=== PATIENT | female | born 1945 | race Caucasian/White ===

== ENCOUNTER 2016-11-03 14:46 | Outpatient (RCR) | payer MEDICARE ==
--- OUTSIDE RECORDS SUMMARY | 2016-10-30 10:45 | XMS REPORT | Continuity of Care Document ---
Author Author [facility] Organization [facility] Address Unknown Phone Unavailable Care Team Providers Care Relays Draftsperson Name Role Phone Cam Dean III PCP [phone] Source Comments Some departments are not documenting in the electronic medical record. If you do not see the information that you expected, contact Release of Information in the Health Information Management department at [phone] for further assistance in locating additional records.[facility] Active Allergies and Adverse Reactions Allergen Noted Date Severity Reactions Comments Latex 05/23/2014 ITCHING, EDEMA 'latex tape' Lortab 08/31/2012 AGITATION Morphine 05/27/2012 HIVES, RASH Penicillins 05/27/2012 HIVES, REDNESS Current Medications Prescription Sig. Disp. Refills Start End Date Status Date raloxifene (EVISTA) 60 mg Take 60 mg by mouth daily Active tablet before breakfast. potassium chloride SR Take 10 mEq by mouth Active (K-DUR) 10 mEq tablet three times daily. citalopram (CELEXA) 20 mg Take 20 mg by mouth Active tablet daily. levothyroxine (SYNTHROID) Take 200 mcg by mouth Active 200 mcg tablet daily. carvedilol (COREG) 25 mg Take 25 mg by mouth twice Active tablet daily with meals. fenofibrate micronized Take 134 mg by mouth Active (LOFIBRA) 134 mg capsule daily before breakfast. triamterene-hydrochloroth Take 2 Caps by mouth Active iazide (DYAZIDE) 37.5-25 every morning. mg per capsule aspirin EC 81 mg tablet Take 81 mg by mouth Active daily. CALCIUM CARBONATE/VITAMIN Take by mouth daily. Active D3 (CALCIUM + D PO) Vitamin A Palmitate Take 1 Cap by mouth every Active 15,000 unit Cap 3 days. LUTEIN PO Take 1 Tab by mouth as Active Needed. FERROUS SULFATE PO Take 45 mg by mouth every Active 3 days. vitamins, multiple tablet Take 1 Tab by mouth Active daily. traMADol (ULTRAM) 50 mg Take 1 Tab by mouth every 20 Tab 0 08/31/20 Active tablet 6 hours as needed for 12 Pain. NAPROXEN SODIUM (ALEVE Take by mouth as Needed. Active PO) CETIRIZINE HCL (ZYRTEC Take by mouth as Needed. Active PO) RANITIDINE HCL (ZANTAC 75 Take by mouth as Needed. Active PO) NAPROXEN SODIUM (ALEVE Take by mouth as Needed. Active PO) diphenhydrAMINE Take 25 mg by mouth every Active (BENADRYL) 25 mg capsule 6 hours as needed. meclizine (ANTIVERT) 25 Take 25 mg by mouth three Active mg tablet times daily as needed. fluticasone (FLONASE) 50 Apply 2 Sprays to each 3 Inhaler 3 09/28/20 Active mcg/actuation nasal spray nostril as directed 14 daily. 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 Discuss ARGUS 2 as an option. Lyme disease 09/20/2013 Last Assessment & Plan: Currently managed by Dr. Zach Dean and PROCESS TANK TENDER Continue medications. Vision loss, bilateral 09/20/2013 Overview: Recent vision loss of both eyes (was able to read emails 2 weeks ago) Last Assessment & Plan: Recent bx of TA shows no abnormalities. Negative for evidence of inflammation, calcification or temporal arteritis. Will do taper of prednisone. Currently on 60 (6 X 10 mg per day). Will do 30 for 5 days, 20 for 5 days, 10 for 5 day, 5 for 5 days then stop. Patient has hx of arthritis. Slow taper to prevent exacerbation. Discussed vision decrease is likely disease progression. Retinitis pigmentosa 09/20/2013 Most Recent Encounters Date Type Specialty Providers Description 10/23/2016 Clinical Otolaryngology Jyotsna Robles AUD Sensorineural hearing Support loss (SNHL) of both ears (Primary Dx) Social History Tobacco Use Types Packs/Day Years Used Date Never Smoker Smokeless Tobacco: Never Used Alcohol Use Drinks/Week oz/Week Comments Yes 5 Standard 2.5 occasionally drinks or equivalent Last Filed Vital Signs Vital Sign Reading Time Taken Blood Pressure 130/79 09/28/2014 11:22 AM TRACK SUBWAY REPAIR SUPERVISOR Pulse 71 09/28/2014 11:22 AM TRACK SUBWAY REPAIR SUPERVISOR Temperature 36.6 C (97.9 F) 09/18/2014 1:45 PM TRACK SUBWAY REPAIR SUPERVISOR Respiratory Rate - - Height 1.676 m (5' 6") 09/28/2014 11:22 AM TRACK SUBWAY REPAIR SUPERVISOR Weight 68.947 kg (152 lb) 09/28/2014 11:22 AM TRACK SUBWAY REPAIR SUPERVISOR Body Mass Index 24.55 09/28/2014 11:22 AM TRACK SUBWAY REPAIR SUPERVISOR Oxygen Saturation 92% 09/18/2014 1:45 PM TRACK SUBWAY REPAIR SUPERVISOR Plan of Care Health Maintenance Due Date Last Done Comments Hepatitis C Screening 1945 Physical (Comprehensive) 1954 Exam Pertussis Vaccine 1958 Tetanus Vaccine 1964 Breast Cancer Screening 1987 Colorectal Cancer 1997 Screening Shingles Vaccine 2007 Osteoporosis Screening 2012 Prevnar/Pneumovax (#1) 2012 Influenza Vaccine 07/17/2016 Procedures from Last 3 Months Procedure Name Priority Date/Time Associated Diagnosis Comments AUDIOMETRY WITH Routine 10/23/2016 TYMPANOMETRY 12:00 AM TRACK SUBWAY REPAIR SUPERVISOR Results from Last 3 Months AUDIOMETRY WITH TYMPANOMETRY (10/23/2016)
[2016-10-30 10:56] LABS: BASOPHILS # (AUTO) 0.1 10^3/uL (0.0-0.1); BASOPHILS % (AUTO) 1 % (0-10); EOSINOPHILS # (AUTO) 0.5 10^3/uL (0.0-0.3); EOSINOPHILS % (AUTO) 7 % (0-10); LYMPHOCYTES # (AUTO) 1.8 X 10^3 (1.0-4.0); LYMPHOCYTES % (AUTO) 29 % (12-44); MEAN CORPUSCULAR HEMOGLOBIN 30 PG (25-34); MEAN CORPUSCULAR HGB CONC 34 G/DL (32-36); MEAN CORPUSCULAR VOLUME 90 FL (80-99); MONOCYTES # (AUTO) 0.7 X 10^3 (0.0-1.0); MONOCYTES % (AUTO) 11 % (0-12); NEUTROPHILS # (AUTO) 3.3 X 10^3 (1.8-7.8); NEUTROPHILS % (AUTO) 52 % (42-75); PLATELET COUNT 391 10^3/uL (130-400); RED CELL DISTRIBUTION WIDTH 14.4 % (10.0-14.5); WHITE BLOOD COUNT 6.2 10^3/uL (4.3-11.0)
[2016-10-30 11:36] LABS: ANION GAP 5 MMOL/L (5-14); BLOOD UREA NITROGEN 17 MG/DL (7-18); CARBON DIOXIDE 31 MMOL/L (21-32); CHLORIDE 99 MMOL/L (98-107); POTASSIUM 3.8 MMOL/L (3.6-5.0); SODIUM 135 MMOL/L (135-145)
[2016-10-30 11:37] LABS: ALANINE AMINOTRANSFERASE 26 U/L (0-55); ALBUMIN 3.9 G/DL (3.2-4.5); ASPARTATE AMINO TRANSFERASE 27 U/L (5-34); BILIRUBIN,TOTAL 0.4 MG/DL (0.1-1.0); BUN/CREATININE RATIO 25; CREATININE SERUM 0.69 MG/DL (0.60-1.30); GFR ESTIMATED > 60; GLUCOSE 94 MG/DL (70-105); TOTAL PROTEIN 5.8 G/DL (6.4-8.2)
[~2016-11-03 14:46] MED LIST: ASP81TEC PO; CARV25TA PO; CEFD300C3 PO; CTLP20T PO; FENO134C PO; KCL10CCR PO; LVT.1T PO; MECL25TA56 PO; METH16TA2 PO; RLX60T PO; TRIA1CAP4 PO; TRIAM
[2016-11-03 15:05] LABS: BILIRUBIN,URINE NEGATIVE (NEGATIVE); KETONES,URINE NEGATIVE (NEGATIVE); LEUKOCYTE ESTERASE ,URINE NEGATIVE (NEGATIVE); NITRITE,URINE NEGATIVE (NEGATIVE); PH,URINE 7 (5-9); PROTEIN,URINE NEGATIVE (NEGATIVE); UROBILINOGEN,URINE NORMAL (NORMAL)
[2016-11-03 15:31] LABS: SQUAMOUS EPITHELIAL CELL,UR 0-2 /HPF
== END 2017-01-28 | disposition home or self-care (01) ==
LOC: ONC 14:46
PROVIDERS: ATTEND Internal Medicine Hematology & Oncology
DX: Z08 Encounter for follow-up examination after completed treatment for malignant neoplasm (principal); Z85.3 Personal history of malignant neoplasm of breast; Z85.820 Personal history of malignant melanoma of skin; Z92.21 Personal history of antineoplastic chemotherapy; Z92.3 Personal history of irradiation
CPT/HCPCS: 36415; 80053; 81000; 85025

== ENCOUNTER → 2016-12-26 | Outpatient (CLI) | payer MEDICARE ==
[~2016-12-26] MED LIST changes: +RT-ALBUTEROL SULF 2.5 MG/3 ML PRE-MIX VIAL INH ONE
--- OUTSIDE RECORDS SUMMARY | 2016-12-26 12:32 | XMS REPORT | Continuity of Care Document ---
Author Author [facility] Organization [facility] Address Unknown Phone Unavailable Care Team Providers Care Stator Tester Name Role Phone Cam Dean III PCP [phone] Source Comments Some departments are not documenting in the electronic medical record. If you do not see the information that you expected, contact Release of Information in the Health Information Management department at [phone] for further assistance in locating additional records.[facility] Active Allergies and Adverse Reactions Allergen Noted [...] Currently managed by Dr. Zach Dean and LOGISTICS SYSTEM ENGINEER Continue medications. Vision loss, bilateral 09/20/2013 Overview: [...] Taken Blood Pressure 130/79 09/28/2014 11:22 AM PUMP ROOM OPERATOR Pulse 71 09/28/2014 11:22 AM PUMP ROOM OPERATOR Temperature 36.6 C (97.9 F) 09/18/2014 1:45 PM PUMP ROOM OPERATOR Respiratory Rate - - Height 1.676 m (5' 6") 09/28/2014 11:22 AM PUMP ROOM OPERATOR Weight 68.947 kg (152 lb) 09/28/2014 11:22 AM PUMP ROOM OPERATOR Body Mass Index 24.55 09/28/2014 11:22 AM PUMP ROOM OPERATOR Oxygen Saturation 92% 09/18/2014 1:45 PM PUMP ROOM OPERATOR Plan of Care Health Maintenance Due Date Last Done Comments Hepatitis C Screening 1945 Physical (Comprehensive) 1954 Exam Pertussis Vaccine 1958 Tetanus Vaccine 1964 Breast Cancer Screening 1987 Colorectal Cancer 1997 Screening Shingles Vaccine 2007 Osteoporosis Screening 2012 Prevnar/Pneumovax (#1) 2012 Influenza Vaccine 07/17/2016 Procedures from Last 3 Months Procedure Name Priority Date/Time Associated Diagnosis Comments AUDIOMETRY WITH Routine 10/23/2016 TYMPANOMETRY 12:00 AM PUMP ROOM OPERATOR Results from Last 3 Months AUDIOMETRY WITH TYMPANOMETRY (10/23/2016)
== END ==
LOC: RT 12:29
PROVIDERS: ATTEND Internal Medicine
DX: R09.02 Hypoxemia (principal)
CPT/HCPCS: 94060; 94640; 94726; 94729

== ENCOUNTER 2017-10-19 09:17 | Outpatient (RCR) | payer MEDICARE ==
[~2017-10-19 09:17] MED LIST changes: -RT-ALBUTEROL SULF 2.5 MG/3 ML PRE-MIX VIAL INH ONE
[2017-10-19 09:38] LABS: BASOPHILS # (AUTO) 0.1 10^3/uL (0.0-0.1); BASOPHILS % (AUTO) 1 % (0-10); EOSINOPHILS # (AUTO) 0.5 10^3/uL (0.0-0.3); EOSINOPHILS % (AUTO) 9 % (0-10); HEMATOCRIT 38 % (35-52); HEMOGLOBIN 12.9 G/DL (11.5-16.0); LYMPHOCYTES # (AUTO) 1.5 X 10^3 (1.0-4.0); LYMPHOCYTES % (AUTO) 26 % (12-44); MEAN CORPUSCULAR HEMOGLOBIN 30 PG (25-34); MEAN CORPUSCULAR HGB CONC 34 G/DL (32-36); MEAN CORPUSCULAR VOLUME 89 FL (80-99); MEAN PLATELET VOLUME 10.4 FL (7.4-10.4); MONOCYTES # (AUTO) 0.6 X 10^3 (0.0-1.0); MONOCYTES % (AUTO) 9 % (0-12); NEUTROPHILS # (AUTO) 3.3 X 10^3 (1.8-7.8); NEUTROPHILS % (AUTO) 55 % (42-75); PLATELET COUNT 377 10^3/uL (130-400); RED BLOOD COUNT 4.32 10^6/uL (4.35-5.85); RED CELL DISTRIBUTION WIDTH 13.5 % (10.0-14.5)
[2017-10-19 09:59] LABS: ALANINE AMINOTRANSFERASE 20 U/L (0-55); ALBUMIN 3.7 GM/DL (3.2-4.5); ALKALINE PHOSPHATASE 27 U/L (40-136); BILIRUBIN,TOTAL 0.5 MG/DL (0.1-1.0); BUN/CREATININE RATIO 18; CALCIUM 8.8 MG/DL (8.5-10.1); CARBON DIOXIDE 31 MMOL/L (21-32); CHLORIDE 99 MMOL/L (98-107); CREATININE SERUM 0.71 MG/DL (0.60-1.30); GFR ESTIMATED > 60; GLUCOSE 109 MG/DL (70-105); POTASSIUM 4.2 MMOL/L (3.6-5.0); SODIUM 138 MMOL/L (135-145); TOTAL PROTEIN 6.2 GM/DL (6.4-8.2)
== END 2018-01-17 | disposition home or self-care (01) ==
LOC: ONC 09:17
PROVIDERS: ATTEND Internal Medicine Hematology & Oncology
DX: Z08 Encounter for follow-up examination after completed treatment for malignant neoplasm (principal); Z85.3 Personal history of malignant neoplasm of breast; Z85.820 Personal history of malignant melanoma of skin; Z92.21 Personal history of antineoplastic chemotherapy; Z92.3 Personal history of irradiation
CPT/HCPCS: 80053; 85025; 99213

== ENCOUNTER → 2017-10-27 | Outpatient (CLI) | payer MEDICARE ==
--- NOTE | 2017-10-28 10:25 | Diagnostic Imaging Report ---
EXAMINATION: Bilateral screening mammogram 2D views with tomosynthesis. The current study was also evaluated with a Computer Aided Detection (CAD) system. INDICATION: Screening. PERSONAL HISTORY: No current complaints stated on the questionnaire. COMPARISON: 07/14/2016. FINDINGS: The breasts are composed of heterogeneously dense parenchyma which may decrease mammographic sensitivity. Benign-appearing calcifications are seen. Allowing for technique and positional differences, no suspicious change is seen. IMPRESSION: No significant change. ACR BI-RADS Category 2: Benign findings. Result letter will be mailed to the patient. Note: At least 10% of breast cancer is not imaged by mammography. Dictated by: Dictated on workstation # [id number]
== END ==
LOC: RAD 13:58
PROVIDERS: ATTEND Internal Medicine Hematology & Oncology
DX: Z12.31 Encounter for screening mammogram for malignant neoplasm of breast (principal); Z85.3 Personal history of malignant neoplasm of breast
CPT/HCPCS: 77067

== ENCOUNTER → 2018-03-19 | Outpatient (RCR) | payer MEDICARE | END | disposition home or self-care (01) | LOC: CR3 02-17 14:49 | PROVIDERS: ATTEND Internal Medicine | DX: Z29.8 Encounter for other specified prophylactic measures (principal) ==

== ENCOUNTER → 2018-03-31 | Outpatient (CLI) | payer MEDICARE | LOC: CARD 10:52 | PROVIDERS: ATTEND Internal Medicine | DX: R00.2 Palpitations (principal); R53.83 Other fatigue | CPT/HCPCS: 93225; 93226 ==

== ENCOUNTER → 2018-04-05 | Outpatient (CLI) | payer MEDICARE ==
[~2018-04-05] MED LIST changes: +CATHETER FLUSH 10 ML SYR IV PRN; +REGADENOSON 0.4 MG/5 ML SYR (LEXISCAN) IV ONE
[2018-04-05 08:08] VITALS: BP 173/89
--- NOTE | 2018-04-08 17:03 | Cardiology Stress Test Report ---
Stress Test Report Type of NM Stress Test: Test Type: MYOVIEW Date of Procedure/Referring: Date of Procedure: April 08, 2018 PCP Isaiah Dean DO Admitting Physician Isaiah Dean DO Indications: Palpitations, fatigue Baseline Heart Rate: 59 Baseline Blood Pressure: Blood Pressure Systolic: 173 Blood Pressure Diastolic: 89 Summary: Please review Dr. Dean's report for the results of pharmacological stress test. 10.28 mCi of Myoview were given for rest imaging and 30.7 mCi of Myoview were given for stress imaging. Transient ischemic dilatation score 0.99. Ejection fraction 64 percent with no wall motion abnormalities. Normal perfusion during rest and stress. Conclusion: Normal myocardial perfusion imaging during rest and stress. Normal LV function with no wall motion abnormalities. Copy Copies To 1: ISAIAH DEAN M RIZWAN MD April 08, 2018 17:03
== END ==
LOC: CARD 06:39
PROVIDERS: ATTEND Internal Medicine
DX: R00.2 Palpitations (principal); R53.83 Other fatigue
CPT/HCPCS: 78452; 93017

== ENCOUNTER 2018-04-20 06:00 | Outpatient (RCR) | payer MEDICARE ==
[~2018-04-20 06:00] MED LIST changes: -CATHETER FLUSH 10 ML SYR IV PRN; -REGADENOSON 0.4 MG/5 ML SYR (LEXISCAN) IV ONE
== END 2018-04-21 | disposition home or self-care (01) ==
LOC: CR3 06:00
PROVIDERS: ATTEND Internal Medicine
DX: Z29.8 Encounter for other specified prophylactic measures (principal)

== ENCOUNTER 2018-05-04 10:14 | Outpatient (RCR) | payer MEDICARE | END 2018-05-04 13:08 | disposition home or self-care (01) | PROVIDERS: ATTEND Nurse Practitioner Family | DX: M19.011 Primary osteoarthritis, right shoulder (principal); M19.012 Primary osteoarthritis, left shoulder ==

== ENCOUNTER → 2018-05-07 | Outpatient (CLI) | payer MEDICARE ==
--- NOTE | 2018-05-07 13:01 | Diagnostic Imaging Report ---
PROCEDURE: MRI right joint upper extremity without contrast. TECHNIQUE: Multiplanar, multisequence non contrast-enhanced MRI of the right shoulder was accomplished. INDICATION: Right shoulder pain. Possible osteoarthritis. COMPARISON: None. FINDINGS: The patient has cochlear implants, and removed the external devices. Conversation with the sales representative supervisor confirmed device safety. No acute fracture or dislocation is seen in the right shoulder. There is severe osteoarthritis in the right glenohumeral joint with bony remodeling of the articular surfaces of the humeral head and glenoid. There is severe osteoarthritis in the right acromioclavicular joint, which causes mass effect on the underlying supraspinatus tendon. Prominent subcortical cyst-like changes are seen in the glenoid. No aggressive osseous lesions are seen. The right glenohumeral joint demonstrates a very large joint effusion, which contains a large ossified joint body in the superior subscapularis recess which measures 2.0 x 1.8 x 2.4 cm. An additional joint body in the recess measures 8 mm in diameter. Prominent ossification is seen extending from the inferior aspect of the coracoid process. There is a large inferior humeral head osteophyte, which measures 1.7 x 1.2 x 2.6 cm in size, extending into the axillary pouch. Additional osteophytes are seen. There is marked fluid in the proximal long head of the biceps tendon sheath, which is proportionate to the joint effusion. There is tendinosis of the supraspinatus tendon. There is a small high-grade partial thickness tear at the anterior fibers of the supraspinatus tendon. Low-grade partial-thickness tearing is seen at the articular surface of the infraspinatus and teres minor tendons. The subscapularis tendon demonstrates moderate tendinosis, with partial-thickness tearing at the articular surface. The long head of the biceps tendon is intact. The glenoid labrum demonstrates extensive degenerative maceration and tearing. The acromion has a curved undersurface without hooking. The coracoclavicular and coracoacromial ligaments are intact. No axillary lymphadenopathy is seen. IMPRESSION: 1. Severe right glenohumeral osteoarthritis with remodeling of the articular surfaces. 2. Large right shoulder joint effusion with multiple large joint bodies and osteophytes. 3. Small high-grade partial-thickness tear of the anterior supraspinatus tendon with tendinosis and partial-thickness tearing in the remainder of the right rotator cuff. Dictated by: Dictated on workstation # [id number]
== END ==
LOC: RAD 10:29
PROVIDERS: ATTEND Nurse Practitioner Family
DX: M75.111 Incomplete rotator cuff tear or rupture of right shoulder, not specified as traumatic (principal); M19.011 Primary osteoarthritis, right shoulder
CPT/HCPCS: 73221

== ENCOUNTER 2018-05-20 06:00 | Outpatient (RCR) | payer MEDICARE | END 2018-05-22 | disposition home or self-care (01) | LOC: CR3 06:00 | PROVIDERS: ATTEND Internal Medicine | DX: Z29.8 Encounter for other specified prophylactic measures (principal) ==

== ENCOUNTER 2018-06-11 17:01 | Outpatient (RCR) | payer MEDICARE | END 2018-06-20 | disposition home or self-care (01) | LOC: CR3 17:01 | PROVIDERS: ATTEND Internal Medicine | DX: Z29.8 Encounter for other specified prophylactic measures (principal) ==

== ENCOUNTER 2018-07-16 13:25 | Outpatient (RCR) | payer MEDICARE | END 2018-07-25 | disposition home or self-care (01) | LOC: CR3 13:25 | PROVIDERS: ATTEND Internal Medicine | DX: Z29.8 Encounter for other specified prophylactic measures (principal) ==

== ENCOUNTER 2018-09-03 18:01 | Outpatient (RCR) | payer MEDICARE | END 2018-09-05 | disposition home or self-care (01) | LOC: CR3 18:01 | PROVIDERS: ATTEND Internal Medicine | DX: Z29.8 Encounter for other specified prophylactic measures (principal) ==

== ENCOUNTER 2018-10-06 13:43 | Outpatient (RCR) | payer MEDICARE | END 2018-10-07 | disposition home or self-care (01) | LOC: CR3 13:43 | PROVIDERS: ATTEND Internal Medicine | DX: Z29.8 Encounter for other specified prophylactic measures (principal) ==

== ENCOUNTER 2018-10-13 12:55 | Outpatient (RCR) | payer MEDICARE | END 2018-11-11 13:24 | disposition home or self-care (01) | PROVIDERS: ATTEND Nurse Practitioner Family | DX: Z47.89 Encounter for other orthopedic aftercare (principal); M25.511 Pain in right shoulder ==

== ENCOUNTER 2018-10-18 10:19 | Outpatient (RCR) | payer MEDICARE ==
[2018-10-18 10:27] LABS: BASOPHILS % (AUTO) 1 % (0-10); EOSINOPHILS # (AUTO) 0.8 10^3/uL (0.0-0.3); EOSINOPHILS % (AUTO) 11 % (0-10); HEMATOCRIT 37 % (35-52); HEMOGLOBIN 12.4 G/DL (11.5-16.0); LYMPHOCYTES # (AUTO) 1.7 X 10^3 (1.0-4.0); LYMPHOCYTES % (AUTO) 24 % (12-44); MEAN CORPUSCULAR HEMOGLOBIN 30 PG (25-34); MEAN CORPUSCULAR HGB CONC 33 G/DL (32-36); MEAN CORPUSCULAR VOLUME 89 FL (80-99); MEAN PLATELET VOLUME 10.2 FL (7.4-10.4); MONOCYTES # (AUTO) 0.6 X 10^3 (0.0-1.0); MONOCYTES % (AUTO) 9 % (0-12); NEUTROPHILS % (AUTO) 56 % (42-75); PLATELET COUNT 346 10^3/uL (130-400); RED CELL DISTRIBUTION WIDTH 13.8 % (10.0-14.5); WHITE BLOOD COUNT 7.2 10^3/uL (4.3-11.0)
[2018-10-18 10:48] LABS: ALANINE AMINOTRANSFERASE 19 U/L (0-55); ALKALINE PHOSPHATASE 27 U/L (40-136); BILIRUBIN,TOTAL 0.4 MG/DL (0.1-1.0); BUN/CREATININE RATIO 22; CALCIUM 8.9 MG/DL (8.5-10.1); CARBON DIOXIDE 28 MMOL/L (21-32); CHLORIDE 98 MMOL/L (98-107); CREATININE SERUM 0.69 MG/DL (0.60-1.30); GFR ESTIMATED > 60; GLUCOSE 88 MG/DL (70-105); POTASSIUM 3.7 MMOL/L (3.6-5.0); SODIUM 133 MMOL/L (135-145); TOTAL PROTEIN 6.2 GM/DL (6.4-8.2)
== END 2019-01-16 | disposition home or self-care (01) ==
LOC: ONC 10:19
PROVIDERS: ATTEND Internal Medicine Hematology & Oncology
DX: Z08 Encounter for follow-up examination after completed treatment for malignant neoplasm (principal); Z85.3 Personal history of malignant neoplasm of breast; Z85.820 Personal history of malignant melanoma of skin; Z92.21 Personal history of antineoplastic chemotherapy; Z92.3 Personal history of irradiation
CPT/HCPCS: 36415; 80053; 85025; 99213

== ENCOUNTER → 2018-11-01 | Outpatient (CLI) | payer MEDICARE ==
--- NOTE | 2018-11-01 22:12 | Diagnostic Imaging Report ---
INDICATION: Palpable fullness reported by the patient in anterior right breast. Correlation is made with prior studies from 10/27/2017 and 07/14/2016. 2-D and 3-D bilateral diagnostic mammography was performed with computer-aided detection (CAD) system. FINDINGS: Both breasts are heterogeneously dense, limiting the sensitivity of mammography. Overall parenchymal pattern appears to be stable. No discrete mass or malignant-appearing microcalcifications are seen. There are benign calcifications present. The axillae are unremarkable apart from some post therapeutic changes in the upper right breast and axilla, stable. No abnormality in the inferior right breast is seen at the area of fullness. IMPRESSION: Stable bilateral mammograms. Even so, sonographic interrogation of the area of fullness in the inferior right breast is recommended and will be performed today. ACR BI-RADS Category 0: Incomplete. (Needs additional imaging evaluation). Result letter will be mailed to the patient. Note: At least 10% of breast cancer is not imaged by mammography. Dictated by: Dictated on workstation # [id number]
--- NOTE | 2018-11-01 22:18 | Diagnostic Imaging Report ---
INDICATION: Thickening along the inferior right breast. Correlation is made with diagnostic mammogram earlier in the same day. FINDINGS: Sonographic interrogation along the inferior right breast at the area of thickening was performed. No sonographic abnormality is seen. No solid or cystic mass is detected. IMPRESSION: No sonographic abnormality is identified. Continued clinical and self breast exam is recommended to confirm stability of the area of palpable abnormality. ACR BI-RADS Category 1: Negative. Dictated by: Dictated on workstation # [id number]
== END ==
LOC: RAD 13:16
PROVIDERS: ATTEND Nurse Practitioner Adult Health
DX: C50.311 Malignant neoplasm of lower-inner quadrant of right female breast (principal); N64.59 Other signs and symptoms in breast
CPT/HCPCS: 77066

== ENCOUNTER → 2018-11-12 | Outpatient (RCR) | payer MEDICARE | END | disposition home or self-care (01) | LOC: CR3 10-13 13:30 | PROVIDERS: ATTEND Internal Medicine | DX: Z29.8 Encounter for other specified prophylactic measures (principal) ==

== ENCOUNTER → 2018-12-17 | Outpatient (RCR) | payer MEDICARE | END | disposition home or self-care (01) | LOC: CR3 11-17 15:26 | PROVIDERS: ATTEND Internal Medicine | DX: Z29.8 Encounter for other specified prophylactic measures (principal) ==

== ENCOUNTER 2019-01-18 06:00 | Outpatient (RCR) | payer MEDICARE | END 2019-01-19 | disposition home or self-care (01) | LOC: CR3 06:00 | PROVIDERS: ATTEND Internal Medicine | DX: Z01.818 Encounter for other preprocedural examination (principal) ==

== ENCOUNTER 2019-02-17 06:00 | Outpatient (RCR) | payer MEDICARE | END 2019-02-19 | disposition home or self-care (01) | LOC: CR3 06:00 | PROVIDERS: ATTEND Internal Medicine | DX: Z29.8 Encounter for other specified prophylactic measures (principal) ==

== ENCOUNTER 2019-02-21 07:56 | Outpatient (RCR) | payer MEDICARE | END 2019-05-22 | disposition home or self-care (01) | LOC: CARD 07:56 | PROVIDERS: ATTEND Internal Medicine | DX: R00.2 Palpitations (principal) ==

== ENCOUNTER 2019-02-22 12:59 | Outpatient (RCR) | payer MEDICARE | END 2019-03-28 | disposition home or self-care (01) | PROVIDERS: ATTEND Internal Medicine | DX: M25.511 Pain in right shoulder (principal); K21.9 Gastro-esophageal reflux disease without esophagitis; I10 Essential (primary) hypertension; Z86.73 Personal history of transient ischemic attack (TIA), and cerebral infarction without residual deficits; Z98.890 Other specified postprocedural states ==

== ENCOUNTER → 2019-03-17 | Outpatient (CLI) | payer MEDICARE ==
--- NOTE | 2019-03-17 11:56 | Diagnostic Imaging Report ---
PROCEDURE: US carotid duplex, bilateral. TECHNIQUE: Multiple real-time grayscale images were obtained over the carotid arteries in various projections, bilaterally. Additional spectral analysis and color Doppler duplex images were also obtained. INDICATION: Dizziness. FINDINGS: The bilateral peak common internal and external carotid arterial systolic velocities were unremarkable and the ICA/CCA percent ratios were unremarkable. A normal antegrade directional vertebral flow bilaterally is present. There are mild left greater than right carotid plaques without hemodynamically significant stenosis. No segmental occlusion. Normal laminar blood flow is maintained. IMPRESSION: Mild degrees of plaque did not result in hemodynamically significant degrees of stenosis. Parameters based on the consensus panel Felipe-Scale and Doppler ultrasound criteria published September 2003, Radiology, Volume 229. DOPPLER (peak systolic velocity M/S Right Left CCA 1.1 0.99 ICA Proximal 0.65 0.96 ICA Mid 0.87 0.94 ICA Distal 1.4 1.0 RATIO 1.2 1.0 ECA 1.2 1.2 VERT 0.39 0.68 Dictated by: Dictated on workstation # [id number]
== END ==
LOC: CARD 09:49
PROVIDERS: ATTEND Internal Medicine Interventional Cardiology
DX: I65.23 Occlusion and stenosis of bilateral carotid arteries (principal); I25.10 Atherosclerotic heart disease of native coronary artery without angina pectoris; I10 Essential (primary) hypertension; M79.89 Other specified soft tissue disorders; R06.02 Shortness of breath; I45.9 Conduction disorder, unspecified; E78.1 Pure hyperglyceridemia
CPT/HCPCS: 93306; 93880

== ENCOUNTER 2019-03-22 06:00 | Outpatient (RCR) | payer MEDICARE | END 2019-03-23 | disposition home or self-care (01) | LOC: CR3 06:00 | PROVIDERS: ATTEND Internal Medicine | DX: Z29.8 Encounter for other specified prophylactic measures (principal) ==

== ENCOUNTER 2019-04-22 13:41 | Outpatient (RCR) | payer MEDICARE | END 2019-04-23 | disposition home or self-care (01) | LOC: CR3 13:41 | PROVIDERS: ATTEND Internal Medicine | DX: Z29.8 Encounter for other specified prophylactic measures (principal) ==

== ENCOUNTER 2019-05-12 19:49 | Outpatient (CLI) | payer MEDICARE | END 2019-05-13 07:18 | disposition home or self-care (01) | LOC: SLEEP 19:49 | PROVIDERS: ATTEND Internal Medicine | DX: G47.33 Obstructive sleep apnea (adult) (pediatric) (principal); I10 Essential (primary) hypertension; F39 Unspecified mood [affective] disorder | CPT/HCPCS: 95810 ==

== ENCOUNTER 2019-05-20 13:00 | Outpatient (RCR) | payer MEDICARE | END 2019-05-26 | disposition home or self-care (01) | LOC: CR3 13:00 | PROVIDERS: ATTEND Internal Medicine | DX: Z29.8 Encounter for other specified prophylactic measures (principal) ==

== ENCOUNTER 2019-06-24 13:23 | Outpatient (RCR) | payer MEDICARE | END 2019-06-25 | disposition home or self-care (01) | LOC: CR3 13:23 | PROVIDERS: ATTEND Internal Medicine | DX: Z29.8 Encounter for other specified prophylactic measures (principal) ==

== ENCOUNTER → 2019-07-27 | Outpatient (RCR) | payer MEDICARE | END | disposition home or self-care (01) | LOC: CR3 06-27 15:00 | PROVIDERS: ATTEND Internal Medicine | DX: Z29.8 Encounter for other specified prophylactic measures (principal) ==

== ENCOUNTER → 2019-08-08 | Outpatient (CLI) | payer MEDICARE ==
--- NOTE | 2019-08-08 12:16 | Diagnostic Imaging Report ---
PROCEDURE: US Non-ob pelvis comp/trans. TECHNIQUE: Multiple realtime grayscale images were obtained of the pelvis in various projections endovaginally. Transabdominal imaging was also performed. INDICATION: Ovarian cancer risk. Patient has had prior partial hysterectomy and unilateral oophorectomy. FINDINGS: The uterus is surgically absent. Neither ovary could be visualized. No pelvic mass or fluid collection is identified. Urinary bladder is unremarkable. IMPRESSION: No pelvic mass is detected. Dictated by: Dictated on workstation # [id number]
== END ==
LOC: RAD 10:32
PROVIDERS: ATTEND Obstetrics & Gynecology
DX: Z91.89 Other specified personal risk factors, not elsewhere classified (principal); Z15.89 Genetic susceptibility to other disease; Z90.721 Acquired absence of ovaries, unilateral; Z90.711 Acquired absence of uterus with remaining cervical stump
CPT/HCPCS: 76830; 76856

== ENCOUNTER 2019-08-26 13:28 | Outpatient (RCR) | payer MEDICARE | END 2019-08-28 | disposition home or self-care (01) | LOC: CR3 13:28 | PROVIDERS: ATTEND Internal Medicine | DX: Z29.8 Encounter for other specified prophylactic measures (principal) ==

== ENCOUNTER 2019-09-30 14:07 | Outpatient (RCR) | payer MEDICARE | END 2019-10-08 | disposition home or self-care (01) | LOC: CR3 14:07 | PROVIDERS: ATTEND Internal Medicine | DX: Z29.8 Encounter for other specified prophylactic measures (principal) ==

== ENCOUNTER → 2019-10-10 | Outpatient (CLI) | payer MEDICARE ==
--- NOTE | 2019-10-10 18:39 | Diagnostic Imaging Report ---
EXAMINATION: Pelvis, single view. Right hip, 2 additional views. COMPARISON: None. HISTORY: 74-year-old female, right hip pain. Fall. FINDINGS: The left hip is not dislocated. The pubic symphysis and sacroiliac joints are normally aligned. There are bilateral facet degenerative changes at L4-L5 and L5-S1. The sacroiliac joints are unremarkable in appearance. The right hip is not dislocated. There is no identified acute fracture. There is no radiopaque foreign body. The hip joint spaces are well-preserved. IMPRESSION: 1. No identified acute bony abnormality at the level of the pelvis or right hip. 2. Bilateral facet degenerative changes at L4-L5 and L5-S1. Dictated by: Dictated on workstation # [id number]
== END ==
LOC: RAD 16:32
PROVIDERS: ATTEND Internal Medicine
DX: M47.817 Spondylosis without myelopathy or radiculopathy, lumbosacral region (principal); M43.06 Spondylolysis, lumbar region; M46.06 Spinal enthesopathy, lumbar region; M99.04 Segmental and somatic dysfunction of sacral region; W19.XXXA Unspecified fall, initial encounter

== ENCOUNTER → 2019-10-18 | Outpatient (CLI) | payer MEDICARE ==
[~2019-10-18] MED LIST changes: +ASPI-999 PO; +CITA40TA19 PO; +HYDR-4226 PO; +IBUP-1773 PO; +LEVO200T6 PO; +POTA10TA10 PO; +RALO60TA12 PO; +TRIA1TAB3 PO
[2019-10-18 10:10] LABS: BASOPHILS % (AUTO) 1 % (0-10); EOSINOPHILS # (AUTO) 0.4 10^3/uL (0.0-0.3); EOSINOPHILS % (AUTO) 6 % (0-10); HEMATOCRIT 37 % (35-52); HEMOGLOBIN 12.3 G/DL (11.5-16.0); LYMPHOCYTES # (AUTO) 1.7 X 10^3 (1.0-4.0); LYMPHOCYTES % (AUTO) 22 % (12-44); MEAN CORPUSCULAR HEMOGLOBIN 30 PG (25-34); MEAN CORPUSCULAR HGB CONC 34 G/DL (32-36); MEAN CORPUSCULAR VOLUME 90 FL (80-99); MEAN PLATELET VOLUME 10.5 FL (7.4-10.4); MONOCYTES # (AUTO) 0.7 X 10^3 (0.0-1.0); MONOCYTES % (AUTO) 9 % (0-12); NEUTROPHILS # (AUTO) 4.8 X 10^3 (1.8-7.8); NEUTROPHILS % (AUTO) 63 % (42-75); PLATELET COUNT 360 10^3/uL (130-400); RED CELL DISTRIBUTION WIDTH 13.4 % (10.0-14.5); WHITE BLOOD COUNT 7.7 10^3/uL (4.3-11.0)
[2019-10-18 10:43] LABS: ALANINE AMINOTRANSFERASE 22 U/L (0-55); ALBUMIN 3.9 GM/DL (3.2-4.5); ALKALINE PHOSPHATASE 25 U/L (40-136); BILIRUBIN,TOTAL 0.3 MG/DL (0.1-1.0); BUN/CREATININE RATIO 17; CALCIUM 8.5 MG/DL (8.5-10.1); CARBON DIOXIDE 28 MMOL/L (21-32); CHLORIDE 99 MMOL/L (98-107); CREATININE SERUM 0.71 MG/DL (0.60-1.30); GFR ESTIMATED > 60; GLUCOSE 94 MG/DL (70-105); POTASSIUM 3.8 MMOL/L (3.6-5.0); SODIUM 136 MMOL/L (135-145)
== END ==
LOC: ONC 09:56
PROVIDERS: ATTEND Internal Medicine Hematology & Oncology
DX: Z08 Encounter for follow-up examination after completed treatment for malignant neoplasm (principal); Z85.3 Personal history of malignant neoplasm of breast; Z85.820 Personal history of malignant melanoma of skin; Z92.21 Personal history of antineoplastic chemotherapy; Z92.3 Personal history of irradiation
CPT/HCPCS: 80053; 85025; 99213

== ENCOUNTER → 2019-10-21 | Outpatient (CLI) | payer MEDICARE ==
--- NOTE | 2019-10-24 09:08 | Diagnostic Imaging Report ---
INDICATION: Screening The current study was also evaluated with a Computer Aided Detection (CAD) system. 3-D Tomographic imaging was also performed. Comparison made to prior examination 11/01/2018, 10/27/2017 and 07/14/2016. FINDINGS: The fibroglandular tissues are heterogeneously dense bilaterally. There are some benign type calcifications. There is no dominant mass, spiculated lesion or suspicious calcification identified. The skin and nipples and axilla are unremarkable. Unremarkable. IMPRESSION: Category 2 benign. ACR BI-RADS Category 2: Benign findings. Result letter will be mailed to the patient. Note: At least 10% of breast cancer is not imaged by mammography. Dictated by: Dictated on workstation # [id number]
== END ==
LOC: RAD 15:06
PROVIDERS: ATTEND Internal Medicine Hematology & Oncology
DX: Z12.31 Encounter for screening mammogram for malignant neoplasm of breast (principal)
CPT/HCPCS: 77067

== ENCOUNTER 2019-10-24 05:34 | Outpatient (CLI) | payer MEDICARE ==
[~2019-10-24] VITALS: Wt 72.7 kg
[~2019-10-24 05:34] MED LIST changes: -ASPI-999 PO; -CITA40TA19 PO; -HYDR-4226 PO; -IBUP-1773 PO; -LEVO200T6 PO; -POTA10TA10 PO; -RALO60TA12 PO; -TRIA1TAB3 PO
[2019-10-24] MEDS ORDERED: CITA40TA19 PO (13:27)
[2019-10-24] MEDS ORDERED: RALO60TA12 PO (13:27)
[2019-10-24] MEDS ORDERED: POTA10TA10 PO (13:27)
[2019-10-24] MEDS ORDERED: FENO134C PO (13:27)
[2019-10-24] MEDS ORDERED: TRIA1TAB3 PO (13:27)
[2019-10-24] MEDS ORDERED: ASPI-999 PO (13:27)
[2019-10-24] MEDS ORDERED: CARV25TA PO (13:27)
[2019-10-24] MEDS ORDERED: LEVO200T6 PO (13:27)
[2019-11-07] MEDS ORDERED: HYDR-4226 PO (08:31)
[2019-11-07] MEDS ORDERED: IBUP-1773 PO (08:31)
== END 2019-10-24 13:28 | disposition home or self-care (01) ==
LOC: PREOP 05:34
PROVIDERS: ATTEND Internal Medicine
DX: Z01.818 Encounter for other preprocedural examination (principal)

== ENCOUNTER 2019-11-02 14:54 | Outpatient (RCR) | payer MEDICARE ==
[~2019-11-02 14:54] MED LIST changes: +ASPI-999 PO; +CITA40TA19 PO; +LEVO200T6 PO; +POTA10TA10 PO; +RALO60TA12 PO; +TRIA1TAB3 PO
[2019-11-07] MEDS ORDERED: HYDR-4226 PO ×2 (08:31)
[2019-11-07] MEDS ORDERED: IBUP-1773 PO ×2 (08:31)
== END 2019-11-10 | disposition home or self-care (01) ==
LOC: CR3 14:54
PROVIDERS: ATTEND Internal Medicine
DX: Z29.8 Encounter for other specified prophylactic measures (principal)

== ENCOUNTER 2019-11-03 05:38 | Outpatient (CLI) | payer MEDICARE ==
[~2019-11-03] VITALS: Ht 167.7 cm; Wt 72.7 kg
== END 2019-11-03 10:23 | disposition home or self-care (01) ==
LOC: PREOP 05:38
PROVIDERS: ATTEND Obstetrics & Gynecology
DX: Z01.818 Encounter for other preprocedural examination (principal)

== ENCOUNTER 2019-11-07 08:03 | Day surgery (SDC) | payer MEDICARE ==
[2019-11-07] VITALS (10 sets, daily range): BP systolic 139–188; BP diastolic 73–87
[~2019-11-07] VITALS: Ht 167.7 cm; Wt 72.7 kg
[2019-11-07] MEDS ORDERED: D5 LR IV SOLUTION 1,000 ML IV SCH (08:29)
--- NOTE | 2019-11-07 08:29 | Progress Note-Pre Operative ---
Pre-Operative Progress Note H&P Reviewed The H&P was reviewed, patient examined and no changes noted. Date Seen by Provider: Nov 07, 2019 Time Seen by Provider: 08:28 Date H&P Reviewed: Nov 07, 2019 Time H&P Reviewed: 08:28 Pre-Operative Diagnosis: Left ovarian cyst, High risk for cancer OMER ALBRECHT DO Nov 07, 2019 08:29
[2019-11-07] MEDS ORDERED: HYDROcodone/APAP 5 MG/325 MG (LORTAB) TAB PO PRN (08:30)
[2019-11-07] MEDS ORDERED: ONDANSETRON 4 MG/2 ML (SDV) Z0FRAN IVP PRN (08:30)
[2019-11-07] MEDS ORDERED: BUPIVACAINE 0.25% 30 ML (SENSORCAINE) VIAL ONE (08:30)
[2019-11-07] MEDS ORDERED: KETOROLAC 15 MG/ML VIAL IVP PRN (08:30)
[2019-11-07] MEDS ORDERED: HYDR-4226 PO ×2 (08:31)
[2019-11-07] MEDS ORDERED: IBUP-1773 PO ×2 (08:31)
--- NOTE | 2019-11-07 08:32 | Discharge Inst-Women's Service ---
Discharge Inst-Women's Serv Depart Medication/Instructions New, Converted or Re-Newed RX: RX on Chart Problems Reviewed?: Yes Consults/Follow Up Additional Follow Up: Yes Orders/Referrals Dr. Lindo in 2 weeks Activity Activity: Activity as Tolerated Driving Instructions: No Driving for 1 Week NO SMOKING: NO SMOKING Nothing Inside Vagina: No Douching, No [place], No Tampons Diet Discharge Diet: No Restrictions Symptoms to Report to : Bleeding Excessive, Pain Increased, Fever Over 101 Degrees F, Vaginal Bleeding Increase, Questions/Concerns For Any Problems or Questions: Contact Your Physician Skin/Wound Care Infection Signs and Symptoms: Increased Redness, Foul Odor of Wound, Increased Drainage, Skin Itchy or Has a Rash, Increased Swelling, Temperature Above 101 F Operative Area Clean and Dry: Keep Incision Clean/Dry Stitches/[place]/Dermabond: Dermabond, Care of Stitches Bathing Instructions: OMER Montelongo DO Nov 07, 2019 08:32
[2019-11-07 08:41] LABS: BASOPHILS % (AUTO) 0 % (0-10); EOSINOPHILS # (AUTO) 0.3 10^3/uL (0.0-0.3); EOSINOPHILS % (AUTO) 3 % (0-10); HEMATOCRIT 38 % (35-52); HEMOGLOBIN 12.9 G/DL (11.5-16.0); LYMPHOCYTES # (AUTO) 1.7 X 10^3 (1.0-4.0); LYMPHOCYTES % (AUTO) 21 % (12-44); MEAN CORPUSCULAR HEMOGLOBIN 30 PG (25-34); MEAN CORPUSCULAR HGB CONC 34 G/DL (32-36); MEAN CORPUSCULAR VOLUME 88 FL (80-99); MEAN PLATELET VOLUME 10.3 FL (7.4-10.4); MONOCYTES # (AUTO) 1.1 X 10^3 (0.0-1.0); MONOCYTES % (AUTO) 14 % (0-12); NEUTROPHILS # (AUTO) 5.2 X 10^3 (1.8-7.8); NEUTROPHILS % (AUTO) 62 % (42-75); PLATELET COUNT 326 10^3/uL (130-400); RED CELL DISTRIBUTION WIDTH 13.5 % (10.0-14.5); WHITE BLOOD COUNT 8.4 10^3/uL (4.3-11.0)
[2019-11-07] MEDS ORDERED: SCOPOLAMINE 1.5 MG (TRANSDERM-SCOP) PATCH ONE (08:44)
[2019-11-07] MEDS ORDERED: FAMOTIDINE 20MG/2ML IV (PEPCID) ONE (08:44)
[2019-11-07] MEDS ORDERED: LIDOCAINE PF 2% 5 ML (XYLOCAINE) VIAL ONE (09:04)
[2019-11-07] MEDS ORDERED: SEVOFLURANE (ULTANE) 15 ML INHAL SOLN ONE ×3 (09:04→09:45)
[2019-11-07] MEDS ORDERED: proPOfol 200 MG/20 ML (DIPRIVAN) VIAL IV ONE (09:04)
[2019-11-07] MEDS ORDERED: MIDAZOLAM 2 MG/2 ML (VERSED) VIAL ONE (09:05)
[2019-11-07] MEDS ORDERED: fentaNYL INJECTION 100 MCG/2 ML AMP ONE (09:05)
[2019-11-07] MEDS ORDERED: LACTATED RINGERS 1,000 ML IV PRN (09:07)
[2019-11-07] MEDS ORDERED: SCOPOLAMINE 1.5 MG (TRANSDERM-SCOP) PATCH TOP ONE (09:30)
[2019-11-07] MEDS ORDERED: FAMOTIDINE 20MG/2ML IV (PEPCID) IV ONE (09:30)
[2019-11-07] MEDS ORDERED: ONDANSETRON 4 MG/2 ML (SDV) Z0FRAN IV ONE (09:30)
[2019-11-07] MEDS ORDERED: ROCURONIUM 50 MG/5 ML (ZEMURON) VIAL IV ONE (09:45)
[2019-11-07] MEDS ORDERED: DEXAMETHASONE 10 MG/ML (DECADRON) 1 ML VIAL ONE (09:45)
[2019-11-07] MEDS ORDERED: GLYCOPYRROLATE 0.2 MG/ML (ROBINUL) 2 ML VIAL ONE (09:45)
[2019-11-07] MEDS ORDERED: ONDANSETRON 4 MG/2 ML (SDV) Z0FRAN ONE (09:45)
[2019-11-07] MEDS ORDERED: NEOSTIGMINE 3 MG/3 ML VIAL ONE (09:45)
[2019-11-07] MEDS ORDERED: DESFLURANE (SUPRANE) 15 ML INHAL SOLN ONE (10:22)
[2019-11-07] MEDS ORDERED: KETOROLAC 30 MG/ML VIAL ONE (10:41)
--- NOTE | 2019-11-07 11:15 | Anesthesia-General Post-Op ---
General Patient Condition Mental Status/LOC: Same as Preop Cardiovascular: Satisfactory Nausea/Vomiting: Absent Respiratory: Satisfactory Pain: Controlled Complications: Absent Post Op Complications Complications None Follow Up Care/Instructions Patient Instructions None needed. Anesthesia/Patient Condition Patient Condition Patient is doing well, no complaints, stable vital signs, no apparent adverse anesthesia problems. No complications reported per nursing. MONY VASQUEZ CRNA Nov 07, 2019 11:15
--- NOTE | 2019-11-07 17:42 | OPERATIVE REPORT ---
DATE OF SERVICE: PREOPERATIVE DIAGNOSES: 1. A 74-year-old female with history of breast malignancy. 2. High-risk ovarian cystic structure seen in the past on ultrasound. POSTOPERATIVE DIAGNOSES: 1. A 74-year-old female with history of breast malignancy. 2. High-risk ovarian cystic structure seen in the past on ultrasound. 3. Extensive adhesions of the omentum to the anterior abdominal wall. PROCEDURE: Laparoscopic right oophorectomy with extensive lysis of adhesions of greater than 30 minutes. SURGEON: Dimitrios Albrecht DO CARVER AND CHECKERER SPECIALS: Lynda Alvarez DNP, who was necessary for vital contributions of the case including retraction of vital structures and help with manipulating instruments and retraction. ANESTHESIA: General endotracheal. ESTIMATED BLOOD LOSS: Minimal. URINE OUTPUT: 200 mL clear at the end of the procedure. FLUIDS: 700 mL lactated Ringer solution. FINDINGS: At the patient's request, a vaginal exam was performed as a grade II cystocele noted. She had concern with vaginal prolapse. During the surgery, there were dense and filmy adhesions of the omentum to the anterior abdominal wall. Grossly normal appearing right ovary. SPECIMEN SENT: Right ovary. INDICATIONS FOR PROCEDURE: This 74-year-old female is a patient who had undergone breast cancer treatment with [facility] and was talking with her physician about the remaining ovary that was left. She had reported there was a very small cyst on that ovary. However, due to her risk of breast cancer recurrence with any type of hormone stimulation, the patient and her oncologist had agreed that removal of the ovary was necessary. I discussed with the patient in detail there was no identifiable abnormality at this point, but there could be in the future and with that possibility, she wished to proceed with removing the ovary. Risks of the procedure was discussed with the patient in detail including risk of bleeding, infection, damage to surrounding structures including, but not limited to bowel, bladder, ureter, kidneys, possible need for reoperation, possible postoperative complications, postoperative recovery time frame, risk from anesthesia and even . After everything was discussed with the patient in detail, consent was obtained in the preoperative area. The patient was taken to the operating room. OPERATIVE REPORT IN DETAIL: Once in the operating room, anesthesia was found to be adequate, placed in dorsal lithotomy position, prepped and draped in normal sterile fashion. A timeout was performed. A Zhang catheter was placed using sterile technique, at which point I evaluated the vagina listed in my findings above. I then performed a change of gloves and took my attention to the abdomen where infraumbilically I infiltrated this area using 0.25% Marcaine and make a 5 mm incision with a knife and directed Veress needle through the incision until intraperitoneal placement was confirmed using saline drop test. An opening pressure of 3 mmHg was noted. I proceeded to maximum pressure of 15 mmHg, at which point I removed the Veress needle and introduced a 5 mm blunt laparoscopic trocar. Once this was in place, I am able to confirm intraperitoneal placement using the laparoscope. There are adhesions that I ran into upon my entry into the peritoneal cavity. However, once in the peritoneum is entered, I do find a window on the abdominal wall in order to place a second trocar. This is another 5 mm trocar in the right lower quadrant, it is placed under direct visualization of laparoscope. After the skin was infiltrated using 0.25% Marcaine, a 5 mm incision was made and the trocars placed under direct visualization of laparoscope. Once this was in place, I used EndoShears to both bluntly and sharply dissect down the peritoneal adhesions and the omental adhesions. This takes a significant amount of time as I have to do this very carefully. There is some small bowel involvement with some of this omentum that was adhesed to the anterior abdominal wall. After this is all taken down and I am satisfied with the amount of visualization I am able to achieve in the pelvis, I then had the patient placed in steep Trendelenburg, I made to visualize all my pelvic anatomy findings as described above. There were some filmy pelvic adhesions that must be taken down as well. However, these were very easy to take down using the EndoShears. Once they were out of the way, I am able to visualize the right ovary. I then placed a suprapubic trocar. This is a 12 mm trocar. The skin is infiltrated using 0.25% Marcaine and a 12 mm incision was made and the trocars placed under direct visualization of laparoscope. Once this trocar was in placed, I am able to grasp the ovary and pulled it from the right pelvic sidewall. I took a LigaSure 5 mm across the IP ligament, bipolar cauterized and transected this using the LigaSure, which allows me to free the ovary from the lateral pelvic sidewall. Once the ovary was free, I am able to remove it with graspers through the 12 mm trocar site. This trocar was then removed and the fascia of this trocar site was then reapproximated using a Mukesh-Mallory and 0 Vicryl suture. Once this was done, all other planes of dissection were inspected and found to be hemostatic. I copiously irrigated the pelvis using normal saline. Once again, there was no active bleeding noted from any of my dissection planes. I released insufflation from the remaining trocars. These were both removed as well. The skin of the 12 mm trocars were reapproximated using 2-0 Monocryl in interrupted subcuticular stitches and Dermabond was used to reapproximate all three of the incisions. Bandages were placed over the incisions as well. Zhang catheter was removed. The patient tolerated the procedure well and was taken to recovery area in stable condition. Lap and sponge counts were correct at the end of the procedure. Instrument count was correct as well. Job ID: [id number] DocumentID: [id number] Dictated Date: 11/07/2019 10:54:06 Airplane Tester Date: 11/07/2019 17:42:12 Dictated By: DIMITRIOS ALBRECHT DO
== END 2019-11-07 12:10 | disposition home or self-care (01) ==
LOC: SDC 08:03
PROVIDERS: ATTEND Obstetrics & Gynecology
DX: N83.311 Acquired atrophy of right ovary (principal); K66.0 Peritoneal adhesions (postprocedural) (postinfection); N81.10 Cystocele, unspecified; I12.9 Hypertensive chronic kidney disease with stage 1 through stage 4 chronic kidney disease, or unspecified chronic kidney disease; N18.3 Chronic kidney disease, stage 3 (moderate); E78.6 Lipoprotein deficiency; E78.1 Pure hyperglyceridemia; E03.9 Hypothyroidism, unspecified; F32.9 Major depressive disorder, single episode, unspecified; F41.9 Anxiety disorder, unspecified; Z85.3 Personal history of malignant neoplasm of breast; Z88.5 Allergy status to narcotic agent; Z88.0 Allergy status to penicillin; Z91.040 Latex allergy status; Z90.710 Acquired absence of both cervix and uterus; Z88.8 Allergy status to other drugs, medicaments and biological substances; Z79.899 Other long term (current) drug therapy; Z79.82 Long term (current) use of aspirin; Z80.3 Family history of malignant neoplasm of breast; Z83.3 Family history of diabetes mellitus; Z82.3 Family history of stroke; Z82.49 Family history of ischemic heart disease and other diseases of the circulatory system
CPT/HCPCS: 36415; 85025; 86850; 86900; 86901; 87081; 88305

== ENCOUNTER 2019-12-16 14:46 | Outpatient (RCR) | payer MEDICARE ==
[~2019-12-16 14:46] MED LIST changes: +HYDR-4226 PO; +IBUP-1773 PO
== END 2019-12-18 | disposition home or self-care (01) ==
LOC: CR3 14:46
PROVIDERS: ATTEND Internal Medicine
DX: Z29.8 Encounter for other specified prophylactic measures (principal)

== ENCOUNTER → 2020-01-06 | Outpatient (CLI) | payer MEDICARE ==
--- NOTE | 2020-01-06 10:51 | Diagnostic Imaging Report ---
PROCEDURE: MRI lumbar spine. TECHNIQUE: Multiplanar, multisequence MRI of the lumbar spine was performed without contrast. INDICATION: Chronic low back pain, worsening in severity over the past few months. COMPARISON: No previous for direct comparison. Study, however, correlated with abdominopelvic CT of 01/13/2013 that includes coronal reconstructions. FINDINGS: An L2 superior endplate Schmorl's node deformity with invagination of disc into that vertebral body is unchanged when correlated with the previous CT and shows no marrow edema. This is a chronic finding. There are some fatty Modic type changes across the L5-S1 articular endplates where there is marked disc desiccation, loss of disc stature, and endplate osteophytes. The lower thoracic cord, the conus, the nerves of the cauda equina, and the conus are unremarkable. No intradural abnormality. No marrow edema or acute bony pathology. No paravertebral mass, hemorrhage, or fluid collection. T12-L1: This level and disc appear normal. No stenosis. L1-L2: Disc desiccation and mild circumferential disc bulge is present without a substantial degree of canal, foraminal, or recess stenosis. L2-L3: There is disc desiccation and mild circumferential annular degenerative disc bulge without focal herniation or resultant stenosis. L3-L4: There is thickening of the ligamenta flava, hypertrophic facet arthrosis, and bulging disc material. The constellation of findings results in a mild degree of canal stenosis as well as mild left greater than right foraminal narrowing. L4-L5: There is grade 1 degenerative anterolisthesis at this level without pedicle or pars defect. The posterior cortices are off about 1-2 mm. There is hypertrophic facet arthrosis and buckle thickening of the ligamenta flava. The constellation of findings results in a severe degree of central canal stenosis with eghu-ye-wskdknii left and moderate severity right neural foraminal narrowing as well as at least mild narrowing of the right greater than left lateral recesses. There is also some prominence of the dorsal epidural fat at this level contributing to the stenosis. L5-S1: Osteophyte disc material results in at least moderate severity of left and mild right neural foraminal stenosis. There is no substantial impingement upon the thecal sac. IMPRESSION: 1. Chronic nonedematous L2 endplate Schmorl's node deformity. No acute bony pathology. 2. Slight grade 1 degenerative L4 on L5 listhesis without spondylolysis evident. 3. Degenerative changes to the discs, endplates, and posterior elements result in multilevel stenoses with involvement of spinal canal, neural foramina, and lateral recesses, listed level by level above. Dictated by: Dictated on workstation # [id number]
== END ==
LOC: RAD 08:56
PROVIDERS: ATTEND Nurse Practitioner
DX: M47.26 Other spondylosis with radiculopathy, lumbar region (principal); M51.46 Schmorl's nodes, lumbar region; M48.07 Spinal stenosis, lumbosacral region
CPT/HCPCS: 72148

== ENCOUNTER 2020-01-11 12:57 | Outpatient (RCR) | payer MEDICARE | END 2020-01-24 | disposition home or self-care (01) | PROVIDERS: ATTEND Internal Medicine | DX: M47.896 Other spondylosis, lumbar region (principal); M25.551 Pain in right hip ==

== ENCOUNTER 2020-01-20 14:51 | Outpatient (RCR) | payer MEDICARE | END 2020-01-22 | disposition home or self-care (01) | LOC: CR3 14:51 | PROVIDERS: ATTEND Internal Medicine | DX: Z29.8 Encounter for other specified prophylactic measures (principal) ==

== ENCOUNTER 2020-01-25 14:00 | Outpatient (RCR) | payer MEDICARE ==
--- NOTE | 2020-01-24 17:13 | NUR ---
CONTACTED PT FOR INFECTIOUS DISEASE SCREENING (PER ADMINISTRATION ORDERS)
== END 2020-02-24 | disposition home or self-care (01) ==
LOC: CR3 14:00
PROVIDERS: ATTEND Internal Medicine
DX: Z29.8 Encounter for other specified prophylactic measures (principal)

== ENCOUNTER → 2020-05-04 | Outpatient (CLI) | payer MEDICARE ==
--- NOTE | 2020-05-04 13:22 | Diagnostic Imaging Report ---
PROCEDURE: US Renal Bilateral. TECHNIQUE: Multiple real-time grayscale images were obtained over the kidneys in various projections bilaterally. INDICATION: Urinary incontinence. FINDINGS: Right kidney is 10.2 cm, the left 10.9 cm. Both unremarkable in cortical thickness and echotexture. No solid or cystic renal mass. No echogenic or shadowing stone. No hydronephrosis. The urinary bladder appeared unremarkable. Patency of the bilateral ureteral jets confirmed with color Doppler. IMPRESSION: Normal sonographic appearance of the unobstructed kidneys and urinary bladder. Dictated by: Dictated on workstation # [id number]
== END ==
LOC: RAD 12:02
PROVIDERS: ATTEND Nurse Practitioner Family
DX: N39.46 Mixed incontinence (principal)
CPT/HCPCS: 76770

== ENCOUNTER → 2020-10-22 | Outpatient (CLI) | payer MEDICARE ==
--- NOTE | 2020-10-22 12:44 | Diagnostic Imaging Report ---
INDICATION: Routine screening. COMPARISON: 10/21/2019 and 11/01/2018. TECHNIQUE: 2D and 3D bilateral screening mammography was performed with CAD. FINDINGS: Both breasts remain heterogeneously dense, limiting the sensitivity of mammography. The parenchymal pattern is stable. No mass or malignant appearing microcalcifications are seen. The axillae are unremarkable. IMPRESSION: No mammographic features suspicious for malignancy are identified. ACR BI-RADS Category 1: Negative. Result letter will be mailed to the patient. Note: At least 10% of breast cancer is not imaged by mammography. Dictated by: Dictated on workstation # [id number]
== END ==
LOC: RAD 10:44
PROVIDERS: ATTEND Internal Medicine Hematology & Oncology
DX: Z12.31 Encounter for screening mammogram for malignant neoplasm of breast (principal)
CPT/HCPCS: 77063; 77067

== ENCOUNTER → 2020-11-01 | Outpatient (CLI) | payer MEDICARE ==
[2020-11-01 09:03] LABS: BASOPHILS # (AUTO) 0.1 10^3/uL (0.0-0.1); BASOPHILS % (AUTO) 1 % (0-10); EOSINOPHILS # (AUTO) 0.4 10^3/uL (0.0-0.3); EOSINOPHILS % (AUTO) 6 % (0-10); HEMATOCRIT 39 % (35-52); HEMOGLOBIN 12.5 g/dL (11.5-16.0); LYMPHOCYTES # (AUTO) 1.9 10^3/uL (1.0-4.0); LYMPHOCYTES % (AUTO) 27 % (12-44); MEAN CORPUSCULAR HEMOGLOBIN 30 pg (25-34); MEAN CORPUSCULAR HGB CONC 33 g/dL (32-36); MEAN CORPUSCULAR VOLUME 94 fL (80-99); MEAN PLATELET VOLUME 10.4 fL (9.0-12.2); MONOCYTES # (AUTO) 0.6 10^3/uL (0.0-1.0); MONOCYTES % (AUTO) 9 % (0-12); NEUTROPHILS # (AUTO) 4.1 10^3/uL (1.8-7.8); NEUTROPHILS % (AUTO) 58 % (42-75); PLATELET COUNT 356 10^3/uL (130-400)
[2020-11-01 09:32] LABS: ALANINE AMINOTRANSFERASE 20 U/L (0-55); ALBUMIN 4.2 GM/DL (3.2-4.5); ALKALINE PHOSPHATASE 30 U/L (40-136); BILIRUBIN,TOTAL 0.4 MG/DL (0.1-1.0); BUN/CREATININE RATIO 22; CALCIUM 9.2 MG/DL (8.5-10.1); CARBON DIOXIDE 31 MMOL/L (21-32); CHLORIDE 100 MMOL/L (98-107); CREATININE SERUM 0.76 MG/DL (0.60-1.30); GFR ESTIMATED > 60; GLUCOSE 102 MG/DL (70-105); POTASSIUM 3.7 MMOL/L (3.6-5.0); SODIUM 137 MMOL/L (135-145); TOTAL PROTEIN 6.8 GM/DL (6.4-8.2)
== END | disposition home or self-care (01) ==
LOC: ONC 08:55
PROVIDERS: ATTEND Internal Medicine Hematology & Oncology
DX: C43.62 Malignant melanoma of left upper limb, including shoulder (principal); Z85.3 Personal history of malignant neoplasm of breast
CPT/HCPCS: 80053; 83615; 85025; G0463; 99213

== ENCOUNTER 2021-02-25 15:32 | Outpatient (RCR) | payer MEDICARE | END 2021-02-27 | disposition home or self-care (01) | LOC: CR3 15:32 | PROVIDERS: ATTEND Internal Medicine | DX: Z29.8 Encounter for other specified prophylactic measures (principal) ==

== ENCOUNTER 2021-03-22 16:32 | Outpatient (RCR) | payer MEDICARE | END 2021-03-31 | disposition home or self-care (01) | LOC: CR3 16:32 | PROVIDERS: ATTEND Internal Medicine | DX: Z29.8 Encounter for other specified prophylactic measures (principal) ==

== ENCOUNTER 2021-04-19 11:13 | Emergency (ER) | payer MEDICARE ==
[~2021-04-19] VITALS: Ht 167.7 cm; Wt 76.7 kg
[~2021-04-19 11:13] MED LIST changes: -CEPH500T PO
[2021-04-19 11:24] VITALS: BP 175/81
[2021-04-19] MEDS ORDERED: LIDOCAINE 1% INJ 20 ML 20 ML VIAL INJ ONE (11:45)
--- NOTE | 2021-04-19 11:49 | ED Upper Extremity ---
General Chief Complaint: Foreign Body Stated Complaint: GLASS IN FINGER/ RIGHT HAND Nursing Triage Note: PT AMBULATE TO TRIAGE WITH C/O HAVING A SHARD OF GLASS IN THE INDEX FINGER OF RIGHT HAND X2 WEEKS AGO. PT STATES SHE WAS PICKING UP SOME BROKEN GLASS AND THE SHARD ENTERED HER FINGER. Nursing Sepsis Screen: No Definite Risk Source: patient Exam Limitations: no limitations History of Present Illness Date Seen by Provider: Apr 19, 2021 Time Seen by Provider: 11:47 Initial Comments To ER with reports of the piece of glass in the distal aspect of the right pointer finger ulnar side of the pad. This is been there for about 2 weeks and they thought it would come out on its own. However, it has not and it still causes her some pain when she is holding silverware. Onset: just prior to arrival Severity: moderate Pain/Injury Location: right 2nd finger Modifying Factors: Worse With Movement Allergies and Home Medications Allergies Coded Allergies: Penicillins (Verified Allergy, Unknown, 04/18/16) latex (Verified Allergy, Unknown, 01/14/13) morphine (Verified Allergy, Unknown, 05/19/14) Home Medications Aspirin 81 Mg Tab.chew, 81 MG PO DAILY, (Reported) Carvedilol 25 Mg Tablet, 25 MG PO BID, (Reported) Cephalexin 500 Mg Tablet, 500 MG PO TID Prescribed by: CAYDEN NUGENT on 04/19/21 1224 Citalopram Hydrobromide 40 Mg Tablet, 40 MG PO DAILY, (Reported) Fenofibrate,Micronized 134 Mg Capsule, 134 MG PO DAILY, (Reported) Hydrocodone/Acetaminophen 1 Each Tablet, 1-2 TAB PO Q6H Prescribed by: OMER ALBRECHT on 11/07/19830 Ibuprofen 600 Mg Tablet, 600 MG PO Q6H Prescribed by: OMER ALBRECHT on 11/07/19830 Levothyroxine Sodium 200 Mcg Tablet, 200 MCG PO DAILY, (Reported) Potassium Chloride 10 Meq Tablet.er, 10 MEQ PO DAILY, (Reported) Raloxifene HCl 60 Mg Tablet, 60 MG PO DAILY, (Reported) Triamterene/Hydrochlorothiazid 1 Each Tablet, 1 EACH PO DAILY, (Reported) Patient Home Medication List Home Medication List Reviewed: Yes Review of Systems Constitutional: see HPI EENTM: see HPI Respiratory: no symptoms reported Cardiovascular: no symptoms reported Genitourinary: no symptoms reported Musculoskeletal: no symptoms reported Skin: see HPI Psychiatric/Neurological: No Symptoms Reported Past Jrkwfvk-Tgraqy-Wlcppg Hx Patient Social History Alcohol Use: Regular Use Number of Drinks Today: FF Alcohol Beverage of Choice: Beer, Vodka Smoking Status: Never a Smoker 2nd Hand Smoke Exposure: No Recent Infectious Disease Expo: No Recent Hopitalizations: No Immunizations Up To Date Tetanus Booster (TDap): Unknown PED Vaccines UTD: No Date of Pneumonia Vaccine: Aug 16, 2015 Date of Influenza Vaccine: Aug 16, 2019 Seasonal Allergies Seasonal Allergies: Yes Past Medical History Surgeries: Yes (ECTOPIC X 1, MELANOMA REMOVAL, BILAT KNEE REPLACEMENT) Respiratory: Yes (O2 AT NIGHT) Pneumonia Currently Using CPAP: No Currently Using BIPAP: No Cardiac: Yes Hypertension Neurological: No 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 Disorders: Yes (HYSTERECTOMY AT AGE 30) Female 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 Disorders: Denies 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 Sexually Transmitted Disease: No HIV/AIDS: No Genitourinary: No Gastrointestinal: Yes Gastroesophageal Reflux Musculoskeletal: Yes Arthritis, Chronic Back Pain Endocrine: Yes Hypothyroidsim HEENT: Yes ( blind) Cataract Loss of Vision: Bilateral Hearing Impairment: Deaf, Hearing Aide Left Cancer: Yes Breast, Melanoma Did You Recieve Any Treatments: No Psychosocial: Yes Anxiety, Depression Integumentary: No Blood Disorders: No Adverse Reaction/Blood Tranf: No Family Medical History Cancer G8 SISTER G8 SISTER Family history: Cardiovascular disease 19 FATHER 19 MOTHER Family history: Hypertension 19 FATHER 19 MOTHER G8 BROTHER G8 SISTER G8 SISTER G8 SISTER G8 SISTER Myocardial infarction 19 FATHER 19 MOTHER Physical Exam Vital Signs Vital Signs - First Documented 04/19/21 11:24 Temp 36.7 Pulse 57 Resp 16 B/P (MAP) 175/81 (112) O2 Delivery Room Air Capillary Refill : Less Than 3 Seconds Height, Weight, BMI Height: 5'6.00" Weight: 148lbs. 8.0oz. [id number]; 27.00 BMI Method:Stated General Appearance: WD/WN, no apparent distress HEENT: PERRL/EOMI, normal ENT inspection Neck: non-tender, full range of motion Respiratory: no respiratory distress, no accessory muscle use Gastrointestinal: normal bowel sounds, non tender, soft Shoulder: normal inspection, non-tender Wrist: Yes normal inspection, Yes non-tender Hand: normal inspection, non-tender Neurologic/Tendon: normal sensation, normal motor functions, normal tendon functions Neurologic/Psychiatric: alert, normal mood/affect, oriented x 3 Skin: normal color, other (To the distal aspect of the pad of the pointer finger ulnar side there is some induration with a central punctum. This is where she states the glass entered her finger. It is tender to touch. She would like to have this removed. I will remove it en bloc.) Procedures/Interventions I&D : Progress I did a digital block using 3 mL of 1% lidocaine without epinephrine. Area was then scrubbed with Betadine solution. This was allowed to dry. A 5 mm punch biopsy was then used to excise this glass in block as it was so small. After this excised piece was evaluated there was in fact a small visible piece of glass within it. 2 simple interrupted sutures size 5-0 Ethilon were then used to reapproximate the wound edges. Antibiotic ointment and 2 x 2 gauze and Coban were then used to cover the wound. Progress/Results/Core Measures Results/Orders My Orders Orders - CAYDEN NUGENT APRN Lidocaine 1% Inj 20 Ml (Xylocaine 1% Inj (04/19/21 11:45) Medications Given in ED Current Medications Medications Dose Ordered Sig/Cong Route Start Time Stop Time Status Last Admin Dose Admin Lidocaine HCl 1 ml ONCE ONCE INJ 04/19/21 11:45 04/19/21 11:46 DC 04/19/21 11:55 1 ML Vital Signs/I&O 04/19/21 11:24 Temp 36.7 Pulse 57 Resp 16 B/P (MAP) 175/81 (112) O2 Delivery Room Air Blood Pressure Mean: 112 Departure Impression Primary Impression: Foreign body granuloma of soft tissue Disposition: HOME, SELF-CARE Condition: Stable Departure-Patient Inst. Decision time for Depature: 12:23 Referrals: ISAIAH SYED DO (PCP/Family) Primary Care Physician Patient Instructions: Foreign Body in Skin Add. Discharge Instructions: 1. Change this dressing as needed if it becomes soaked with blood 2. Return to ER in about 7 to 10 days (closer to 10 days) to have the stitches removed. You can shower starting tonight letting water run over this and then redress it with either a Band-Aid or the materials provided. Take the antibiotic as directed. All discharge instructions reviewed with patient and/or family. Voiced understanding. Scripts Cephalexin (Cephalexin) 500 Mg Tablet 500 MG PO TID, #10 TAB Prov: CAYDEN NUGENT APRN 04/19/21 CAYDEN NUGENT APRN Apr 19, 2021 11:49
[2021-04-19] MEDS ORDERED: CEPH500T PO (12:24)
== END 2021-04-19 12:29 | disposition home or self-care (01) ==
LOC: EDUNIT# 11:13 → ER 11:16
DX: M60.28 Foreign body granuloma of soft tissue, not elsewhere classified, other site (principal); I10 Essential (primary) hypertension; G89.29 Other chronic pain; M54.9 Dorsalgia, unspecified; E03.9 Hypothyroidism, unspecified; F41.9 Anxiety disorder, unspecified; F32.9 Major depressive disorder, single episode, unspecified; Z79.891 Long term (current) use of opiate analgesic; Z79.82 Long term (current) use of aspirin; Z79.1 Long term (current) use of non-steroidal anti-inflammatories (NSAID); Z79.899 Other long term (current) drug therapy; Z88.0 Allergy status to penicillin
CPT/HCPCS: 99282

== ENCOUNTER → 2021-04-19 | Outpatient (REF) ==
[~2021-04-19] MED LIST changes: +CEPH500T PO
--- NOTE | 2021-04-19 11:01 | Diagnostic Imaging Report ---
INDICATION: Positive T-SPOT. FINDINGS: PA and lateral chest. The lungs are well-aerated. There are no infiltrates. No masses. There is mild cardiomegaly. No evidence of pulmonary edema. No pneumothorax or pleural effusion. IMPRESSION: Cardiomegaly with otherwise normal chest. Dictated by: Dictated on workstation # [id number]
== END ==
LOC: OCC 10:23
PROVIDERS: ATTEND Family Medicine
DX: I51.7 Cardiomegaly (principal)
CPT/HCPCS: 71046

== ENCOUNTER 2021-04-26 14:18 | Outpatient (RCR) | payer MEDICARE ==
[~2021-04-26 14:18] MED LIST changes: +CEPH500T PO
== END 2021-05-01 | disposition home or self-care (01) ==
LOC: CR3 14:18
PROVIDERS: ATTEND Internal Medicine
DX: Z29.8 Encounter for other specified prophylactic measures (principal)

== ENCOUNTER 2021-04-29 12:16 | Emergency (ER) | payer MEDICARE ==
[~2021-04-29] VITALS: Ht 162 cm; Wt 68.0 kg
[2021-04-29 12:25] VITALS: BP 0/0
== END 2021-04-29 12:42 | disposition home or self-care (01) ==
LOC: EDUNIT# 12:16 → ER 12:19
DX: Z48.02 Encounter for removal of sutures (principal)

== ENCOUNTER → 2021-04-29 | Outpatient (CLI) | payer MEDICARE | LOC: CARD 11:42 | PROVIDERS: ATTEND Internal Medicine | DX: I51.7 Cardiomegaly (principal) | CPT/HCPCS: 93306 ==

== ENCOUNTER → 2021-06-05 | Outpatient (RCR) | payer MEDICARE | LOC: CR3 05-06 10:31 | PROVIDERS: ATTEND Internal Medicine | DX: Z00.00 Encounter for general adult medical examination without abnormal findings (principal) ==

== ENCOUNTER 2021-06-07 16:39 | Outpatient (RCR) | payer MEDICARE | END 2021-07-07 | LOC: CR3 16:39 | PROVIDERS: ATTEND Internal Medicine | DX: Z29.8 Encounter for other specified prophylactic measures (principal) ==

== ENCOUNTER 2021-08-23 15:10 | Outpatient (RCR) | payer MEDICARE | END 2021-08-25 | LOC: CR3 15:10 | PROVIDERS: ATTEND Internal Medicine | DX: Z29.8 Encounter for other specified prophylactic measures (principal) ==

== ENCOUNTER → 2021-09-25 | Outpatient (RCR) | payer MEDICARE | END | disposition home or self-care (01) | LOC: CR3 08-26 14:51 | PROVIDERS: ATTEND Internal Medicine | DX: Z29.8 Encounter for other specified prophylactic measures (principal) ==

== ENCOUNTER 2021-10-23 14:52 | Outpatient (RCR) | payer MEDICARE | END 2021-10-27 | disposition home or self-care (01) | LOC: CR3 14:52 | PROVIDERS: ATTEND Internal Medicine | DX: Z29.8 Encounter for other specified prophylactic measures (principal) ==

== ENCOUNTER → 2021-10-28 | Outpatient (CLI) | payer MEDICARE ==
--- NOTE | 2021-10-28 12:25 | Diagnostic Imaging Report ---
INDICATION: Routine screening. Comparison is made with prior mammogram 10/22/2020 and told 05/05/2019. 2-D and 3-D bilateral screening mammography was performed with CAD. Both breasts are heterogeneously dense, limiting the sensitivity of mammography. Occasional benign calcifications are present. No mass or malignant-appearing microcalcifications are seen. Axillae are unremarkable. IMPRESSION: BI-RADS Category 2 No mammographic features suspicious for malignancy are identified. ACR BI-RADS Category 2: Benign findings. Result letter will be mailed to the patient. Note: At least 10% of breast cancer is not imaged by mammography. Dictated by: Dictated on workstation # [id number]
== END ==
LOC: RAD 10:00
PROVIDERS: ATTEND Internal Medicine Hematology & Oncology
DX: Z12.31 Encounter for screening mammogram for malignant neoplasm of breast (principal); Z85.3 Personal history of malignant neoplasm of breast
CPT/HCPCS: 77063; 77067

== ENCOUNTER → 2021-10-31 | Outpatient (CLI) | payer MEDICARE ==
[2021-10-31 10:12] LABS: BASOPHILS % (AUTO) 1 % (0-10); EOSINOPHILS # (AUTO) 0.3 10^3/uL (0.0-0.3); EOSINOPHILS % (AUTO) 4 % (0-10); HEMATOCRIT 37 % (35-52); HEMOGLOBIN 12.4 g/dL (11.5-16.0); LYMPHOCYTES # (AUTO) 1.8 10^3/uL (1.0-4.0); LYMPHOCYTES % (AUTO) 27 % (12-44); MEAN CORPUSCULAR HEMOGLOBIN 31 pg (25-34); MEAN CORPUSCULAR HGB CONC 33 g/dL (32-36); MEAN CORPUSCULAR VOLUME 92 fL (80-99); MEAN PLATELET VOLUME 9.9 fL (9.0-12.2); MONOCYTES # (AUTO) 0.7 10^3/uL (0.0-1.0); MONOCYTES % (AUTO) 11 % (0-12); NEUTROPHILS # (AUTO) 3.7 10^3/uL (1.8-7.8); NEUTROPHILS % (AUTO) 57 % (42-75); PLATELET COUNT 339 10^3/uL (130-400); WHITE BLOOD COUNT 6.6 10^3/uL (4.3-11.0)
[2021-10-31 10:38] LABS: ALBUMIN 4.2 GM/DL (3.2-4.5); BILIRUBIN,TOTAL 0.4 MG/DL (0.1-1.0); CALCIUM 9.1 MG/DL (8.5-10.1); CREATININE SERUM 0.68 MG/DL (0.60-1.30); POTASSIUM 3.7 MMOL/L (3.6-5.0); TOTAL PROTEIN 6.7 GM/DL (6.4-8.2)
== END ==
LOC: ONC 10:12
PROVIDERS: ATTEND Internal Medicine Hematology & Oncology
DX: C43.62 Malignant melanoma of left upper limb, including shoulder (principal); I10 Essential (primary) hypertension; I25.10 Atherosclerotic heart disease of native coronary artery without angina pectoris; E78.1 Pure hyperglyceridemia; E87.6 Hypokalemia; E03.9 Hypothyroidism, unspecified; Z85.3 Personal history of malignant neoplasm of breast
CPT/HCPCS: 80053; 83615; 85025; G0463; 99213

== ENCOUNTER → 2021-11-13 | Outpatient (CLI) | payer MEDICARE ==
--- NOTE | 2021-11-13 11:56 | Diagnostic Imaging Report ---
EXAMINATION: Lumbar spine MRI from 11/13/2021. TECHNIQUE: Multiplanar, multisequence MRI of the lumbar spine was performed without contrast. INDICATION: Cervical and lumbar pain. FINDINGS: There is grade 1 anterolisthesis of L4 on L5. Remaining alignment is preserved. There are no compression deformities appreciated. Mild endplate changes at L4-L5 consistent with Modic type I degenerative disease. The tip of the conus is unremarkable in appearance and location. L1-L2: There is a Schmorl's node along the superior endplate of L2. There is intervertebral disc space narrowing, disc desiccation, and a mild broad-based bulging disc. There is bilateral facet and ligamentum flavum hypertrophy. There is no central stenosis. There is mild bilateral neuroforaminal narrowing. L2-L3: There is disc desiccation with intervertebral disc space narrowing. There is bilateral facet and ligamentum flavum hypertrophy. There is no significant central stenosis. There is mild bilateral neuroforaminal narrowing. L3-L4: There is disc desiccation with a left paracentral disc protrusion. There is bilateral facet and ligamentum flavum hypertrophy. There is mild central narrowing with narrowing of the left lateral recess. There is [id number]-pm-[id number] bilateral neuroforaminal stenosis. L4-L5: There is disc desiccation with a right paracentral broad-based bulging disc. There is bilateral facet and ligamentum flavum hypertrophy with moderate central stenosis. There is narrowing of the lateral recesses bilaterally. There is moderate bilateral neuroforaminal narrowing, right greater than left. Edema or cystic change in between the spinous processes extend towards the left facet, possibly a synovial cyst. A process such as Baastrup's is less likely but not excluded. L5-S1: There is intervertebral disc space narrowing, disc desiccation, and broad-based bulging disc material with bilateral facet hypertrophy. There is no significant central stenosis. There is mild narrowing of the left lateral recess. There is moderate bilateral neuroforaminal stenosis. The visualized intra-abdominal structures appear unremarkable. IMPRESSION: 1. Multilevel diffuse degenerative disease as discussed above. Dictated by: Dictated on workstation # [id number]
--- NOTE | 2021-11-13 12:16 | Diagnostic Imaging Report ---
EXAMINATION: MRI of the cervical spine without contrast from 11/13/2021. TECHNIQUE: Multiplanar, multisequence MR imaging of the cervical spine was performed without contrast. INDICATION: Cochlear implants. External devices removed. Pain in the cervical spine. FINDINGS: The cervicomedullary junction is unremarkable. The visualized cord signal is preserved. Alignment of the spine demonstrates no significant subluxations. There is normal height of the vertebral bodies. C2-C3: Unremarkable. C3-C4: There is intervertebral disc space narrowing, disc desiccation, and a right paracentral broad-based bulging disc with bilateral facet hypertrophy. There is secondary mild central narrowing with narrowing of the right lateral recess. There is narrowing of the neuroforamina bilaterally, moderate in nature. C4-C5: There is intervertebral disc space narrowing, disc desiccation, and a right paracentral broad-based bulging disc with bilateral facet hypertrophy. There is no significant central stenosis but narrowing of the neuroforamina is noted bilaterally, mild to moderate in nature. C5-C6: There is intervertebral disc space narrowing, disc desiccation, and a broad-based spur disc complex causing moderate central stenosis. There is bilateral facet hypertrophy with secondary bilateral neuroforaminal narrowing, severe on the left and moderate to severe on the right. C6-C7: There is intervertebral disc space narrowing and disc desiccation with a mild left paracentral broad-based bulging disc. There is bilateral facet hypertrophy. There is moderate central stenosis with narrowing of the neuroforamina, left worse than right. C7-T1: There is intervertebral disc space narrowing and disc desiccation. There is no significant bulging disc material with no central stenosis. The neuroforamina appear patent. Remaining visualized levels are unremarkable. Minimal grade 1 anterolisthesis is seen at T2-T3. On machines technician imaging, there is a questionable oval soft tissue abnormality in the right upper lung laterally; best seen on the coronal localizer imaging. This could represent artifact however dedicated chest imaging is recommended. IMPRESSION: 1. Multilevel diffuse degenerative disease as described above with moderate central stenosis at C5-C6 and multilevel [id number] neuroforaminal narrowing. 2. Nonspecific oval hypointensity in the periphery of the right upper lung. This could be artifact with a lung nodule not excluded. It may represent volume averaging with an adjacent rib as well. Chest x-ray recommended for further characterization. Dictated by: Dictated on workstation # [id number]
== END ==
LOC: RAD 09:30
PROVIDERS: ATTEND Neurological Surgery
DX: M51.17 Intervertebral disc disorders with radiculopathy, lumbosacral region (principal); M48.07 Spinal stenosis, lumbosacral region; M47.27 Other spondylosis with radiculopathy, lumbosacral region; M50.11 Cervical disc disorder with radiculopathy, high cervical region; M48.02 Spinal stenosis, cervical region; M43.16 Spondylolisthesis, lumbar region; M47.22 Other spondylosis with radiculopathy, cervical region
CPT/HCPCS: 72141; 72148

== ENCOUNTER → 2021-11-19 | Outpatient (CLI) | payer MEDICARE ==
[~2021-11-19] MED LIST changes: +CATHETER FLUSH 10 ML SYR IV PRN; +HOLD METFORMIN - RECEIVED CONTRAST 20 ML VIAL IV SCH; +IOHEXOL 350 MG/ML 100 ML (OMNIPAQUE 350) VIAL IV ONE; +NS 100 ML (IVPB) BAG IV ONE
--- NOTE | 2021-11-19 10:03 | Diagnostic Imaging Report ---
EXAMINATION: CT chest with intravenous contrast. TECHNIQUE: Multiple contiguous axial images were obtained through the chest after the uneventful administration of intravenous contrast. All CT scans use one or more of the following dose optimizing techniques: automated exposure control, MA and/or KvP adjustment based on patient size and exam type or iterative reconstruction. HISTORY: Pulmonary nodule COMPARISON: 11/04/2016 FINDINGS: There is no edema or pneumonia. No pleural effusion. No pneumothorax. No suspicious nodules. There is no axillary or supraclavicular lymphadenopathy. There is no mediastinal lymphadenopathy. Heart size is normal. There are mild coronary artery calcifications. No pericardial effusion. Aorta is normal in caliber. Limited views of the upper abdomen are unremarkable. There are no suspicious osseus lesions. IMPRESSION: 1. No pulmonary nodule. Dictated by: Dictated on workstation # [id number]
== END ==
LOC: RAD 09:45
PROVIDERS: ATTEND Internal Medicine Hematology & Oncology
DX: R91.1 Solitary pulmonary nodule (principal)
CPT/HCPCS: 71260

== ENCOUNTER 2021-12-13 15:12 | Outpatient (RCR) | payer MEDICARE ==
[~2021-12-13 15:12] MED LIST changes: -CATHETER FLUSH 10 ML SYR IV PRN; -HOLD METFORMIN - RECEIVED CONTRAST 20 ML VIAL IV SCH; -IOHEXOL 350 MG/ML 100 ML (OMNIPAQUE 350) VIAL IV ONE; -NS 100 ML (IVPB) BAG IV ONE
== END 2021-12-15 | disposition home or self-care (01) ==
LOC: CR3 15:12
PROVIDERS: ATTEND Internal Medicine
DX: Z29.8 Encounter for other specified prophylactic measures (principal)

== ENCOUNTER → 2021-12-24 | Outpatient (CLI) | payer MEDICARE ==
[~2021-12-24] VITALS: Ht 167 cm; Wt 77.0 kg
[~2021-12-24] MED LIST changes: +CATHETER FLUSH 10 ML SYR IV PRN; +REGADENOSON 0.4 MG/5 ML SYR (LEXISCAN) IV ONE
[2021-12-24 09:25] VITALS: BP 157/84
--- NOTE | 2021-12-24 17:26 | STRESS TEST ---
DATE OF SERVICE: 12/24/2021 RESTING AND POST REGADENOSON TECHNETIUM-99M TETROFOSMIN SPECT CT IMAGING ORDERING PHYSICIAN: Lucy Bullard APRN. PRIMARY PHYSICIAN: Dr. Dean. OTHER PHYSICIAN: Dr. Hernandez. CLINICAL DIAGNOSIS: Chest discomfort. Baseline images were carried out after injection of 10.64 mCi of technetium-99m Tetrofosmin. This was followed by 0.4 mg Regadenoson and 29.4 mCi of technetium-99m Tetrofosmin for stress imaging. The electrocardiogram showed sinus rhythm at baseline. It did not change significantly with the Regadenoson infusion. The patient tolerated the procedure well. Review of images at rest and following stress indicates a small to moderate perfusion defect in the anteroapical segment and SDS score is 8. Left ventricular ejection fraction is calculated to be 66%. TID is absent (1.03). CONCLUSIONS: 1. This study is suggestive of a small to moderate amount of anteroapical ischemia. 2. Normal regional wall motion. 3. Normal global left ventricular systolic function with a calculated ejection fraction of 66%. Job ID: [id number] DocumentID: [id number] Dictated Date: 12/24/2021 15:12:45 Tea Bag P[employer] Date: 12/24/2021 17:25:48 Dictated By: DOROTEO HERNANDEZ MD, MA, FACP, FACC,
== END ==
LOC: CARD 08:15
PROVIDERS: ATTEND Nurse Practitioner Family
DX: R07.89 Other chest pain (principal)
CPT/HCPCS: 78452; 93017; A9502

== ENCOUNTER → 2021-12-26 | Outpatient (CLI) | payer MEDICARE ==
[~2021-12-26] MED LIST changes: +ALPR0.254 PO; +AMLO5TAB4 PO; -CATHETER FLUSH 10 ML SYR IV PRN; +CHOL10007 PO; +CITA10TA12 PO; +FERR-65 PO; +FURO40TA4 PO; +LEVO175C2 PO; +MULT-974 PO; +OMEP20TA7 PO; +POTA10CA43 PO; -REGADENOSON 0.4 MG/5 ML SYR (LEXISCAN) IV ONE; +ROSU20TA2 PO; +SOLI5TAB7 PO; +VALS320T15 PO; +oxygen
== END ==
LOC: CARD 14:00
PROVIDERS: ATTEND Nurse Practitioner Family
DX: R06.02 Shortness of breath (principal); R00.2 Palpitations; I07.1 Rheumatic tricuspid insufficiency
CPT/HCPCS: 93225; 93226; 93306

== ENCOUNTER 2022-01-06 15:22 | Outpatient (RCR) | payer MEDICARE ==
[~2022-01-06 15:22] MED LIST changes: -ALPR0.254 PO; -AMLO5TAB4 PO; -CHOL10007 PO; -CITA10TA12 PO; -FERR-65 PO; -FURO40TA4 PO; -LEVO175C2 PO; -MULT-974 PO; -OMEP20TA7 PO; -POTA10CA43 PO; -ROSU20TA2 PO; -SOLI5TAB7 PO; -VALS320T15 PO; -oxygen
[2022-01-10] MEDS ORDERED: OMEP20TA7 PO (08:26)
[2022-01-10] MEDS ORDERED: CHOL10007 PO (08:26)
[2022-01-10] MEDS ORDERED: LEVO175C2 PO (08:26)
[2022-01-10] MEDS ORDERED: SOLI5TAB7 PO (08:26)
[2022-01-10] MEDS ORDERED: AMLO5TAB4 PO (08:26)
[2022-01-10] MEDS ORDERED: FENO134C PO (08:26)
[2022-01-10] MEDS ORDERED: FERR-65 PO (08:26)
[2022-01-10] MEDS ORDERED: POTA10CA43 PO (08:26)
[2022-01-10] MEDS ORDERED: ALPR0.254 PO (08:26)
[2022-01-10] MEDS ORDERED: MULT-974 PO (08:26)
[2022-01-10] MEDS ORDERED: FURO40TA4 PO (08:26)
[2022-01-10] MEDS ORDERED: CITA10TA12 PO (08:26)
[2022-01-10] MEDS ORDERED: VALS320T15 PO (08:26)
[2022-01-10] MEDS ORDERED: oxygen (08:26)
[2022-01-10] MEDS ORDERED: ROSU20TA2 PO (10:16)
== END 2022-01-15 | disposition home or self-care (01) ==
LOC: CR3 15:22
PROVIDERS: ATTEND Internal Medicine
DX: Z29.8 Encounter for other specified prophylactic measures (principal)

== ENCOUNTER 2022-01-10 08:00 | Day surgery (SDC) | payer MEDICARE ==
[~2022-01-10] VITALS: Ht 167.7 cm; Wt 78.0 kg
[2022-01-10] VITALS (9 sets, daily range): BP systolic 125–206; BP diastolic 58–96
[2022-01-10 07:44] LABS: HEMATOCRIT 37 % (35-52); HEMOGLOBIN 12.3 g/dL (11.5-16.0); MEAN CORPUSCULAR HEMOGLOBIN 31 pg (25-34); MEAN CORPUSCULAR HGB CONC 33 g/dL (32-36); MEAN CORPUSCULAR VOLUME 92 fL (80-99); MEAN PLATELET VOLUME 10.3 fL (9.0-12.2); PLATELET COUNT 341 10^3/uL (130-400)
[2022-01-10 08:00] LABS: INR 0.9 (0.8-1.4)
[~2022-01-10 08:00] MED LIST changes: +HEParin (CATH LAB) 2,000 ML IV ONE; +LIDOCAINE 1% INJ 50 ML (XYLOCAINE) VIAL ONE; +MIDAZOLAM 5 MG/5 ML (VERSED) VIAL ONE; +NS IV 1000 ML 1,000 ML IV SCH; +NS IV 1000 ML 1,000 ML ONE; +fentaNYL INJ 100 MCG/2 ML AMP ONE
[2022-01-10 08:10] LABS: ALBUMIN 4.1 GM/DL (3.2-4.5); BILIRUBIN,TOTAL 0.4 MG/DL (0.1-1.0); CALCIUM 9.1 MG/DL (8.5-10.1); CREATININE SERUM 0.79 MG/DL (0.60-1.30); POTASSIUM 3.7 MMOL/L (3.6-5.0); TOTAL PROTEIN 6.5 GM/DL (6.4-8.2)
[2022-01-10] MEDS ORDERED: AMLO5TAB4 PO (08:26)
[2022-01-10] MEDS ORDERED: FERR-65 PO (08:26)
[2022-01-10] MEDS ORDERED: CITA10TA12 PO (08:26)
[2022-01-10] MEDS ORDERED: OMEP20TA7 PO (08:26)
[2022-01-10] MEDS ORDERED: FENO134C PO (08:26)
[2022-01-10] MEDS ORDERED: POTA10CA43 PO (08:26)
[2022-01-10] MEDS ORDERED: FURO40TA4 PO (08:26)
[2022-01-10] MEDS ORDERED: oxygen (08:26)
[2022-01-10] MEDS ORDERED: ALPR0.254 PO (08:26)
[2022-01-10] MEDS ORDERED: VALS320T15 PO (08:26)
[2022-01-10] MEDS ORDERED: SOLI5TAB7 PO (08:26)
[2022-01-10] MEDS ORDERED: LEVO175C2 PO (08:26)
[2022-01-10] MEDS ORDERED: MULT-974 PO (08:26)
[2022-01-10] MEDS ORDERED: CHOL10007 PO (08:26)
[2022-01-10] MEDS ORDERED: ADENOSINE 90 MG/30 ML (ADENOSCAN) VIAL IV ONE (09:38)
[2022-01-10] MEDS ORDERED: HEParin 1000 UNIT/ML (10ML VIAL) FOR BOLUS ONE (09:38)
--- NOTE | 2022-01-10 10:05 | Cardiac Procedure Note-CS/ASA ---
Pre-Procedure Note Pre-Op Procedure Note H&P Reviewed The H&P was reviewed, patient examined and no changes noted. Date H&P Reviewed: Jan 10, 2022 Time H&P Reviewed: 09:30 Conscious Sedation Pre-Proced Time 09:30 ASA Score 3 For ASA 3 and 4: Consider anesthesia and medical clearance. Also, for patients with a history of failed moderate sedation consider anesthesia. Airway Lungs Heart ASA score ASA 1: a normal healthy patient ASA 2: a patient with a mild systemic disease (mid diabetes, controlled hypertension, obesity ASA 3: a patient with a severe systemic disease that limits activity (angina, COPD, prior Myocardial infarction) ASA 4: a patient with an incapacitating disease that is a constant threat to life (CHF, renal failure) ASA 5: a moribund patient not expected to survive 24 hrs. (ruptured aneurysm) ASA 6: a declared brain- patient whose organs are being harvested. For emergent operations, add the letter E after the classification Mallampati Classification Grade 2 Sedation Plan Analgesia, Amnesia, Plan communicated to team members, Discussed options with patient/fam, Discussed risks with patient/fam The patient is an appropriate candidate to undergo the planned procedure, sedation, and anesthesia. The patient immediately re-assessed prior to indication. DOROTEO HERNANDEZ MD FACP [facility] Jan 10, 2022 10:05
[2022-01-10] MEDS ORDERED: PATIENT MAY USE OWN MEDS, ALL PO SCH (10:15)
[2022-01-10] MEDS ORDERED: NS IV 1000 ML 1,000 ML IV SCH (10:15)
[2022-01-10] MEDS ORDERED: ROSU20TA2 PO (10:16)
--- NOTE | 2022-01-10 10:17 | Discharge Inst-Cardiology ---
Discharge Inst-Cardiac Discharge Medications New Medications: Rosuvastatin Calcium (Crestor) 20 Mg Tablet 20 MG PO HS, #30 TAB 5 Refills Continued Medications: ALPRAZolam (ALPRAZolam) 0.25 Mg Tablet 0.25 MG PO HS PRN for INSOMNIA, TAB Amlodipine Besylate (Norvasc) 5 Mg Tablet 5 MG PO DAILY, TAB Aspirin (Aspirin) 81 Mg Tab.chew 81 MG PO HS, TAB Carvedilol (Carvedilol) 25 Mg Tablet 50 MG PO BID, TAB take 2 tablets twice a day Cholecalciferol (Vitamin D3) (Vitamin D3) 25 Mcg Capsule 25 MCG PO DAILY, CAP Citalopram Hydrobromide (Celexa) 10 Mg Tablet 10 MG PO DAILY, TAB Ferrous Sulfate (Feosol) 325 Mg Tablet 325 MG PO DAILY, TAB Furosemide (Furosemide) 40 Mg Tablet 40 MG PO DAILY, TAB Levothyroxine Sodium (Levothyroxine) 175 Mcg Capsule 175 MCG PO DAILY, CAP Multivitamin (Multi-Vitamin Daily) 1 Each Tablet 1 EACH PO DAILY, TAB Omeprazole (Omeprazole) 20 Mg Tablet.dr 20 MG PO DAILY, TAB [oxygen] () 2 L HS Potassium Chloride (Potassium Chloride) 10 Meq Tablet.er 20 MEQ PO DAILY, TAB take 2 tabs in am 1 tab at bedtime Potassium Chloride (Potassium Chloride) 10 Meq Capsule.er 10 MEQ PO HS, CAP take 2 in am, 1 at bedtime Raloxifene HCl (Raloxifene HCl) 60 Mg Tablet 60 MG PO DAILY, TAB Solifenacin Succinate (Solifenacin Succinate) 5 Mg Tablet 5 MG PO DAILY, TAB Valsartan (Valsartan) 320 Mg Tablet 320 MG PO DAILY, TAB Discontinued Medications: Fenofibrate,Micronized (Fenofibrate) 134 Mg Capsule 134 MG PO DAILY, DOROTEO MONDRAGON MD FACP [facility] CCDS Jan 10, 2022 10:17
--- NOTE | 2022-01-10 10:19 | Discharge Inst-Post CATH ---
Discharge Inst-CATH/EP Post Cardiac Cath/EP D/C Inst Follow Up/Plan F/u with Dr Guerrero next week ACTIVITY * Go Home directly and rest. * Limit activity of the leg (or wrist if it was used) for 7 days including aerobics, swimming, jogging, bicycling, etc. * Restrict stair-climbing for 7 days if possible, if not, climb up with your no n-cath leg, then bring together on the same step. * Avoid lifting, pushing, pulling or excessive movement of the affected ext remity for 7 days. * Customary sexual activity may be resumed after 2 days-use caution not to use a position that strains or causes pain to the affected extremity. * No driving for 24 hours. * NO SMOKING. * Avoid straining for bowel movements for 7 days. * Gentle walking on level ground is allowed. * Returning to work will depend on the type of procedure and the results. Your doctor will discuss this with you. CALL YOUR DOCTOR FOR ANY OF THE FOLLOWING: *If bleeding from the puncture site occurs- Apply gentle pressure to site with clean cloth and call your doctor or EMS. * If a knot or lump forms under the skin, increases in size, or causes pain. * If bruising appears to be worsening or moving further down your leg instead of disappearing. * Temperature above 101 F. CARE OF YOUR GROIN INCISION; * Bruising or purple discoloration of the skin near the puncture site is common. * You may shower only, no bathtub bathing for 5 days. Be careful to avoid slipping as your leg may feel stiff. * If a closure device was used on your femoral artery, please see the attached guide regarding care of the device and your leg. * Leave dressing on FOR 24 hours. CARE OF YOUR WRIST INCISION; * Bruising or purple discoloration of the skin near the puncture site is common. * You may shower. * DO NOT submerge wrist. * Leave dressing on FOR 24 hours. DOROTEO GUERRERO MD [facility]S Jan 10, 2022 10:19
--- NOTE | 2022-01-10 11:00 | CARDIAC CATHETERIZATION ---
DATE OF SERVICE: 01/10/2022 CARDIAC CATHETERIZATION REPORT INDICATIONS: The patient is a 76-year-old lady who has symptoms of shortness of breath. Myocardial perfusion imaging was indicative of anterior ischemia. Cardiac catheterization was carried out today after having obtained an informed consent. DESCRIPTION OF PROCEDURE: She was brought to the cardiac catheterization laboratory in a fasting state. Right groin was prepared and draped in the usual sterile fashion. Lidocaine 1% was used for local anesthesia. Modified Seldinger technique was used to advance a 5-[place] sheath in right femoral artery, 5-[place] JL4 catheter was used for left coronary angiography, 5-[place] JR4 catheter was used for right coronary angiography, 5-[place] pigtail catheter was used for left heart catheterization and left ventricular angiography. Subsequently, we performed fractional flow reserve measurement at the mid left anterior descending artery lesion, which angiographically, appeared to be approximately 40% to 50%. FRACTIONAL FLOW RESERVE MEASUREMENT IN THE LEFT ANTERIOR DESCENDING: We exchanged the sheath over a wire for a 6-[place] sheath. We used a 6-[place] JL3.5 guide catheter to engage the left coronary artery. We advanced a pressure wire across the lesion in the left anterior descending and placed it in the distal vessel. We disengaged the guide catheter from the coronary. We infused adenosine at 140 mcg per kilogram per minute for 2-1/2 minutes. Fractional flow reserve across the mid left anterior descending artery lesion was 0.9 at its worst. The patient tolerated the procedure quite well. Subsequent angiography did not reveal any change in coronary status. The equipment was removed. Angiography of the right femoral artery was carried out through the sheath. Mynx was used to achieve hemostasis. She tolerated the procedure well. HEMODYNAMICS: Left ventricular end-diastolic pressure following coronary angiography was 17 mmHg. There was no significant pressure gradient on pullback across the aortic valve. Ascending aortic pressure was 144/61 with a mean of 94 mmHg. CORONARY ANGIOGRAPHY: Left main coronary artery is short and does not exhibit significant disease. Left anterior descending artery has 40% to 50% mid vessel stenosis and fractional flow reserve across this is 0.9, indicating hemodynamic non-significance. The left circumflex artery is free of significant disease. Right coronary artery is dominant and has mild plaques. LEFT VENTRICULAR ANGIOGRAPHY: Left ventricular angiography was carried out in the right anterior oblique projection. Global left ventricular systolic function is normal. Left ventricular ejection fraction is approximately 50%. CONCLUSIONS: 1. Angiographically mild coronary artery disease. There is 40% to 50% mid LAD stenosis and fractional flow across that is 0.9. Right coronary artery has mild plaques. Left circumflex artery does not exhibit significant disease. Right coronary artery is dominant. 2. Normal global left ventricular systolic function with ejection fraction approximately 60%. 3. Elevated left ventricular end-diastolic pressure (17 mmHg). DISCUSSION AND RECOMMENDATIONS: Her current regimen is being continued with the exception that we have asked her to stop fenofibrate and initiate therapy with statins. We will continue this as tolerated. Repeat hepatic, renal and electrolyte profiles and lipid panel are advised in 5 weeks. Lab requisition for this was provided to her. Outpatient followup is advised. Aspirin therapy and her previous cardiac regimen is being continued. Job ID: [id number] DocumentID: [id number] Dictated Date: 01/10/2022 10:33:34 [facility] Date: 01/10/2022 10:59:49 Dictated By: DOROTEO HERNANDEZ MD, MA, FACP, FACC,
[2022-01-10] MEDS ORDERED: doxAzosin 4 MG (CARDURA) TAB PO SCH (12:15)
== END 2022-01-10 14:15 | disposition home or self-care (01) ==
LOC: CATH 08:00 → SDC 10:20 → CATH 14:15
PROVIDERS: ATTEND Internal Medicine Cardiovascular Disease
DX: I25.10 Atherosclerotic heart disease of native coronary artery without angina pectoris (principal); E78.1 Pure hyperglyceridemia; H54.7 Unspecified visual loss; I13.0 Hypertensive heart and chronic kidney disease with heart failure and stage 1 through stage 4 chronic kidney disease, or unspecified chronic kidney disease; I50.9 Heart failure, unspecified; N18.30 Chronic kidney disease, stage 3 unspecified; E89.0 Postprocedural hypothyroidism; E78.2 Mixed hyperlipidemia; R00.2 Palpitations; H91.90 Unspecified hearing loss, unspecified ear; I65.23 Occlusion and stenosis of bilateral carotid arteries; Z79.899 Other long term (current) drug therapy; Z79.82 Long term (current) use of aspirin; Z85.3 Personal history of malignant neoplasm of breast; Z80.3 Family history of malignant neoplasm of breast; Z85.820 Personal history of malignant melanoma of skin; Z79.890 Hormone replacement therapy
CPT/HCPCS: 80053; 80061; 85027; 85610; 85730; 87081; 93458; 93571; C1760; C1769; C1887; C1894 ×2; 36415

== ENCOUNTER → 2022-01-20 | Outpatient (CLI) | payer MEDICARE ==
[~2022-01-20] MED LIST changes: +ALPR0.254 PO; +AMLO5TAB4 PO; +CHOL10007 PO; +CITA10TA12 PO; +FERR-65 PO; +FURO40TA4 PO; -HEParin (CATH LAB) 2,000 ML IV ONE; +LEVO175C2 PO; -LIDOCAINE 1% INJ 50 ML (XYLOCAINE) VIAL ONE; -MIDAZOLAM 5 MG/5 ML (VERSED) VIAL ONE; +MULT-974 PO; -NS IV 1000 ML 1,000 ML IV SCH; -NS IV 1000 ML 1,000 ML ONE; +OMEP20TA7 PO; +POTA10CA43 PO; +ROSU20TA2 PO; +SOLI5TAB7 PO; +VALS320T15 PO; -fentaNYL INJ 100 MCG/2 ML AMP ONE; +oxygen
--- NOTE | 2022-01-20 16:24 | Diagnostic Imaging Report ---
INDICATION: Right groin pain, recent catheterization. TECHNIQUE: The right groin arterial Doppler study was performed in the routine fashion with color flow Doppler and waveform analysis. FINDINGS: There are ill-defined hypoechoic areas in the right groin which are probably small hematomas. There is no evidence of pseudoaneurysm. The right common femoral artery is patent. IMPRESSION: Ill-defined small hematomas in the right groin are present. There is no evidence of pseudoaneurysm or AV fistula. Dictated by: Dictated on workstation # [id number]
== END ==
LOC: RAD 09:17
PROVIDERS: ATTEND Internal Medicine Cardiovascular Disease
DX: S30.1XXA Contusion of abdominal wall, initial encounter (principal); M79.604 Pain in right leg
CPT/HCPCS: 93926

== ENCOUNTER → 2022-01-28 | Outpatient (CLI) | payer MEDICARE ==
[~2022-01-28] MED LIST changes: +RT-ALBUTEROL SULF 2.5 MG/3 ML PRE-MIX VIAL INH ONE
--- NOTE | 2022-01-28 14:10 | Diagnostic Imaging Report ---
INDICATION: Chest pain. TIME OF EXAM: 12:09 PM Comparison is made with prior chest 04/19/2021. The heart size is stable but lungs are clear. The pulmonary vascularity is normal. No infiltrates are seen. There is no effusion or pneumothorax. Postop changes in the right shoulder noted. IMPRESSION: No acute cardiopulmonary process is detected. Dictated by: Dictated on workstation # [id number]
== END ==
LOC: RT 10:45
PROVIDERS: ATTEND Internal Medicine Critical Care Medicine
DX: I27.20 Pulmonary hypertension, unspecified (principal); J96.10 Chronic respiratory failure, unspecified whether with hypoxia or hypercapnia
CPT/HCPCS: 71046; 94060; 94621; 94726; 94729

== ENCOUNTER 2022-03-14 14:55 | Outpatient (RCR) | payer MEDICARE ==
[~2022-03-14 14:55] MED LIST changes: +FENO134C21 PO; +OMEP20TA56 PO; -OMEP20TA7 PO; -RT-ALBUTEROL SULF 2.5 MG/3 ML PRE-MIX VIAL INH ONE
== END 2022-03-15 | disposition home or self-care (01) ==
LOC: CR3 14:55
PROVIDERS: ATTEND Internal Medicine
DX: Z29.8 Encounter for other specified prophylactic measures (principal)

== ENCOUNTER → 2022-03-25 | Outpatient (CLI) | payer MEDICARE | LOC: CARD 15:00 | PROVIDERS: ATTEND Internal Medicine Critical Care Medicine | DX: I27.20 Pulmonary hypertension, unspecified (principal); I51.7 Cardiomegaly | CPT/HCPCS: 93306 ==

== ENCOUNTER 2022-04-15 11:00 | Day surgery (SDC) | payer MEDICARE ==
[2022-04-15] VITALS (7 sets, daily range): BP systolic 138–186; BP diastolic 79–109
[~2022-04-15] VITALS: Ht 167.6 cm; Wt 82.8 kg
[2022-04-15 09:54] LABS: HEMATOCRIT 39 % (35-52); HEMOGLOBIN 13.2 g/dL (11.5-16.0); MEAN CORPUSCULAR HEMOGLOBIN 31 pg (25-34); MEAN CORPUSCULAR HGB CONC 34 g/dL (32-36); MEAN CORPUSCULAR VOLUME 91 fL (80-99); MEAN PLATELET VOLUME 10.4 fL (9.0-12.2); PLATELET COUNT 285 10^3/uL (130-400); WHITE BLOOD COUNT 8.3 10^3/uL (4.3-11.0)
[2022-04-15 10:03] LABS: POTASSIUM 4.3 MMOL/L (3.6-5.0)
[2022-04-15 10:04] LABS: ALBUMIN 4.2 GM/DL (3.2-4.5)
[2022-04-15 10:05] LABS: CALCIUM 9.4 MG/DL (8.5-10.1)
[2022-04-15 10:06] LABS: TOTAL PROTEIN 6.7 GM/DL (6.4-8.2)
[2022-04-15 10:08] LABS: BILIRUBIN,TOTAL 0.5 MG/DL (0.1-1.0)
[2022-04-15 10:10] LABS: CREATININE SERUM 0.64 MG/DL (0.60-1.30)
[2022-04-15 10:11] LABS: PROTHROMBIN TIME PATIENT 13.4 SEC (12.2-14.7)
[~2022-04-15 11:00] MED LIST changes: +DOXA2TAB2 PO; +HEParin (CATH LAB) 2,000 ML IV ONE; +LIDOCAINE 1% INJ 20 ML VIAL ONE; +NS IV 1000 ML 1,000 ML IV SCH; +NS IV 1000 ML 1,000 ML ONE; +ROSU20TA32 PO
[2022-04-15] MEDS ORDERED: fentaNYL INJ 100 MCG/2 ML AMP ONE (11:41)
[2022-04-15] MEDS ORDERED: MIDAZOLAM 5 MG/5 ML (VERSED) VIAL ONE (11:41)
--- NOTE | 2022-04-15 12:12 | Cardiac Procedure Note-CS/ASA ---
Pre-Procedure Note Pre-Op Procedure Note H&P Reviewed The H&P was reviewed, patient examined and no changes noted. Date H&P Reviewed: April 15, 2022 Time H&P Reviewed: 11:50 Conscious Sedation Pre-Proced Time 11:50 ASA Score 3 For ASA 3 and 4: Consider anesthesia and medical clearance. Also, for patients with a history of failed moderate sedation consider anesthesia. Airway Lungs Heart ASA score ASA 1: a normal healthy patient ASA 2: a patient with a mild systemic disease (mid diabetes, controlled hypertension, obesity ASA 3: a patient with a severe systemic disease that limits activity (angina, COPD, prior Myocardial infarction) ASA 4: a patient with an incapacitating disease that is a constant threat to life (CHF, renal failure) ASA 5: a moribund patient not expected to survive 24 hrs. (ruptured aneurysm) ASA 6: a declared brain- patient whose organs are being harvested. For emergent operations, add the letter E after the classification Mallampati Classification Grade 2 Sedation Plan Analgesia, Amnesia, Plan communicated to team members, Discussed options with patient/fam, Discussed risks with patient/fam The patient is an appropriate candidate to undergo the planned procedure, sedation, and anesthesia. The patient immediately re-assessed prior to indication. DOROTEO HERNANDEZ MD FACP [facility]S April 15, 2022 12:12
--- NOTE | 2022-04-15 13:26 | Discharge Inst-Cardiology ---
Discharge Inst-Cardiac Discharge Medications Continued Medications: ALPRAZolam (ALPRAZolam) 0.25 Mg Tablet 0.25 MG PO HS PRN for INSOMNIA, TAB Aspirin (Aspirin) 81 Mg Tab.chew 81 MG PO HS, TAB Carvedilol (Carvedilol) 25 Mg Tablet 50 MG PO BID, TAB take 2 tablets twice a day Cholecalciferol (Vitamin D3) (Vitamin D3) 25 Mcg Capsule 25 MCG PO DAILY, CAP Citalopram Hydrobromide (Celexa) 10 Mg Tablet 10 MG PO DAILY, TAB Doxazosin Mesylate (Doxazosin Mesylate) 2 Mg Tablet 2 MG PO DAILY, TAB Ferrous Sulfate (Feosol) 325 Mg Tablet 325 MG PO DAILY, TAB Furosemide (Furosemide) 40 Mg Tablet 40 MG PO DAILY, TAB Levothyroxine Sodium (Levothyroxine) 175 Mcg Capsule 175 MCG PO DAILY, CAP Multivitamin (Multi-Vitamin Daily) 1 Each Tablet 1 EACH PO DAILY, TAB Omeprazole (Omeprazole) 20 Mg Tablet.dr 20 MG PO BID, TAB [oxygen] () 2 L HS Potassium Chloride (Potassium Chloride) 10 Meq Tablet.er 20 MEQ PO DAILY, TAB take 2 tabs in am 1 tab at bedtime Potassium Chloride (Potassium Chloride) 10 Meq Capsule.er 10 MEQ PO HS, CAP take 2 in am, 1 at bedtime Raloxifene HCl (Raloxifene HCl) 60 Mg Tablet 60 MG PO DAILY, TAB Rosuvastatin Calcium (Rosuvastatin Calcium) 20 Mg Tablet 20 MG PO HS, TAB Valsartan (Valsartan) 320 Mg Tablet 320 MG PO DAILY, TAB DOROTEO HERNANDEZ MD FACP [facility] April 15, 2022 13:26
--- NOTE | 2022-04-15 13:27 | Discharge Inst-Post CATH ---
Discharge Inst-CATH/EP Post Cardiac Cath/EP D/C Inst Follow Up/Plan F/u with Dr Guerrero in 2 weeks ACTIVITY * Go Home directly and rest. * Limit activity of the leg (or wrist if it was used) for 3 days including aerobics, swimming, jogging, bicycling, etc. * Restrict stair-climbing for 3 days if possible, if not, climb up with your n on-cath leg, then bring together on the same step. * Avoid lifting, pushing, pulling or excessive movement of the affected ex tremity for 7 days. * Customary sexual activity may be resumed after 2 days-use caution not to use a position that strains or causes pain to the affected extremity. * No driving for 24 hours. * NO SMOKING. * Avoid straining for bowel movements for 3 days. * Gentle walking on level ground is allowed. * Returning to work will depend on the type of procedure and the results. Your doctor will discuss this with you. CALL YOUR DOCTOR FOR ANY OF THE FOLLOWING: *If bleeding from the puncture site occurs- Apply gentle pressure to site with clean cloth and call your doctor or EMS. * If a knot or lump forms under the skin, increases in size, or causes pain. * If bruising appears to be worsening or moving further down your leg instead of disappearing. * Temperature above 101 F. CARE OF YOUR GROIN INCISION; * Bruising or purple discoloration of the skin near the puncture site is common. * You may shower only, no bathtub bathing for 5 days. Be careful to avoid slipping as your leg may feel stiff. * If a closure device was used on your femoral artery, please see the attached guide regarding care of the device and your leg. * Leave dressing on FOR 24 hours. CARE OF YOUR WRIST INCISION; * Bruising or purple discoloration of the skin near the puncture site is common. * You may shower. * DO NOT submerge wrist. * Leave dressing on FOR 24 hours. DOROTEO GUERRERO MD FACP [facility] April 15, 2022 13:27
[2022-04-15] MEDS ORDERED: NS IV 1000 ML 1,000 ML IV SCH (13:30)
[2022-04-15] MEDS ORDERED: PATIENT MAY USE OWN MEDS, ALL PO SCH (13:30)
--- NOTE | 2022-04-15 14:03 | CARDIAC CATHETERIZATION ---
DATE OF SERVICE: 04/15/2022 RIGHT HEART CATHETERIZATION REPORT The patient is a 76-year-old lady who has been diagnosed with mild to moderate pulmonary hypertension on echocardiography. Right heart catheterization was carried out today for further evaluation. DESCRIPTION OF PROCEDURE: She was brought to the cardiac catheterization laboratory in a fasting state. Right groin was prepared and draped in the usual sterile fashion. Lidocaine 1% used for local anesthesia. Modified Seldinger technique was used to advance a 7-[place] sheath into the right femoral vein. We used a 7-[place] catheter to carry out right heart catheterization and to measure oxygen saturation in various heart chambers. The catheter was then removed, and the sheath was removed, and manual pressure was used to achieve hemostasis. She tolerated the procedure well. HEMODYNAMICS: Pulmonary artery pressure was 40/16 with a mean of 29 mmHg. Mean pulmonary wedge pressure was 21 mmHg. Right ventricular pressure was 41/11. Mean right atrial pressure was 7 mmHg. Pulmonary vascular resistance was 2.18 Wood units. Cardiac output by thermodilution was 5.83 and the cardiac index by thermodilution was 3.04. CONCLUSIONS: 1. Mild to moderate pulmonary hypertension. 2. Moderate elevation of pulmonary wedge pressure. DISCUSSION AND RECOMMENDATIONS: We will discuss the results with the patient's ferry operator, Dr. Dodge. Diuretic therapy appears appropriate, given that there is evidence of some degree of heart failure, likely diastolic dysfunction, given that left heart catheterization earlier this year, did not show significant coronary artery disease and left ventricular ejection fraction was 60%. Left ventricular end-diastolic pressure at that time was 17 mmHg. Outpatient followup is advised. Job ID: [id number] DocumentID: [id number] Dictated Date: 04/15/2022 13:22:01 Clinical Associate Date: 04/15/2022 14:02:29 Dictated By: DOROTEO HERNANDEZ MD, MA, FACP, FACC,
== END 2022-04-15 15:35 | disposition home or self-care (01) ==
LOC: CATH 11:00 → SDC 13:46 → CATH 15:35
PROVIDERS: ATTEND Internal Medicine Cardiovascular Disease
DX: I27.20 Pulmonary hypertension, unspecified (principal); I50.9 Heart failure, unspecified
CPT/HCPCS: 80053; 80061; 85027; 85610; 85730; 87081; 93005; 93451; C1769; C1894; 36415

== ENCOUNTER 2022-04-22 12:00 | Day surgery (SDC) | payer MEDICARE ==
[~2022-04-22] VITALS: Ht 167.6 cm; Wt 81.0 kg
[2022-04-22 11:33] VITALS: BP 174/79
[~2022-04-22 12:00] MED LIST changes: -HEParin (CATH LAB) 2,000 ML IV ONE; +LIDOCAINE 1% INJ 20 ML VIAL INJ ONE; -NS IV 1000 ML 1,000 ML IV SCH; -NS IV 1000 ML 1,000 ML ONE
--- NOTE | 2022-04-22 19:05 | OPERATIVE REPORT ---
DATE OF SERVICE: 04/22/2022 PREOPERATIVE DIAGNOSIS: Near syncope. POSTOPERATIVE DIAGNOSIS: Near syncope. PROCEDURE PERFORMED: Implantable loop recorder implantation. INDICATIONS FOR PROCEDURE: The patient is a 76-year-old lady, who has been experiencing symptoms of near syncope that lasted several seconds and they are quite infrequent. Implantable loop recorder was carried out today after having obtained an informed consent. DESCRIPTION OF PROCEDURE: [facility] The left prepectoral area was prepared and draped in the usual sterile fashion. Lidocaine 1% was used for local anesthesia. The tools provided with the [employer] LINQ II device were used to make a subcutaneous pocket anterior to the left fourth intercostal space into which the device was placed. Dermabond and Steri-Strips were used to close the skin edges. She tolerated the procedure well. The serial number of the device is [id number]. Job ID: [id number] DocumentID: [id number] Dictated Date: 04/22/2022 13:17:58 [employer] Date: 04/22/2022 19:05:04 Dictated By: DOROTEO HERNANDEZ MD, MA, FACP, FACC,
== END 2022-04-22 13:37 | disposition home or self-care (01) ==
LOC: CATH 12:00
PROVIDERS: ATTEND Internal Medicine Cardiovascular Disease
DX: R55 Syncope and collapse (principal); R07.9 Chest pain, unspecified; R06.02 Shortness of breath; E78.5 Hyperlipidemia, unspecified; I87.2 Venous insufficiency (chronic) (peripheral); I47.2 Ventricular tachycardia; I27.21 Secondary pulmonary arterial hypertension; I11.9 Hypertensive heart disease without heart failure; I65.23 Occlusion and stenosis of bilateral carotid arteries; L10.4 Pemphigus erythematosus; R60.0 Localized edema; C50.919 Malignant neoplasm of unspecified site of unspecified female breast; E78.2 Mixed hyperlipidemia; Z79.899 Other long term (current) drug therapy
CPT/HCPCS: 33285; C1764

== ENCOUNTER 2022-05-12 14:31 | Outpatient (RCR) | payer MEDICARE ==
[~2022-05-12 14:31] MED LIST changes: -LIDOCAINE 1% INJ 20 ML VIAL INJ ONE; -LIDOCAINE 1% INJ 20 ML VIAL ONE
== END 2022-05-15 | disposition home or self-care (01) ==
LOC: CR3 14:31
PROVIDERS: ATTEND Internal Medicine
DX: Z29.8 Encounter for other specified prophylactic measures (principal)

== ENCOUNTER 2022-07-14 15:16 | Outpatient (RCR) | payer MEDICARE | END 2022-07-15 | disposition home or self-care (01) | LOC: CR3 15:16 | PROVIDERS: ATTEND Internal Medicine | DX: Z29.8 Encounter for other specified prophylactic measures (principal) ==

== ENCOUNTER → 2022-07-14 | Outpatient (CLI) | payer MEDICARE ==
[~2022-07-14] VITALS: Ht 167.6 cm; Wt 77.1 kg
== END ==
LOC: PREOP 11:50
PROVIDERS: ATTEND Orthopaedic Surgery
DX: Z01.818 Encounter for other preprocedural examination (principal); G56.01 Carpal tunnel syndrome, right upper limb; M67.432 Ganglion, left wrist

== ENCOUNTER 2022-07-23 07:50 | Day surgery (SDC) | payer MEDICARE ==
[~2022-07-23] VITALS: Ht 167.6 cm; Wt 77.1 kg
[2022-07-23] VITALS (11 sets, daily range): BP systolic 127–169; BP diastolic 68–87
[~2022-07-23 07:50] MED LIST changes: +HYDROcodone/APAP 7.5 MG/325 MG (LORTAB, LORCET PLUS) TABLET PO PRN
[2022-07-23] MEDS ORDERED: ONDANSETRON 4 MG/2 ML (SDV) Z0FRAN ONE ×2 (08:36→09:58)
[2022-07-23] MEDS ORDERED: FAMOTIDINE 20MG/2ML IV (PEPCID) ONE (08:37)
[2022-07-23] MEDS ORDERED: ONDANSETRON 4 MG/2 ML (SDV) Z0FRAN IV ONE (08:45)
[2022-07-23] MEDS ORDERED: LACTATED RINGERS 1,000 ML IV PRN (08:45)
[2022-07-23] MEDS ORDERED: ceFAZolin INJECTION 1,000 MG VIAL IV ONE (08:45)
[2022-07-23] MEDS ORDERED: FAMOTIDINE 20MG/2ML IV (PEPCID) IV ONE (08:45)
[2022-07-23] MEDS ORDERED: CLINDAMYCIN 600 MG/50 ML IVPB 50 ML IV ONE ×2 (09:48→10:00)
[2022-07-23] MEDS ORDERED: fentaNYL INJ 100 MCG/2 ML AMP ONE ×2 (09:58→11:32)
[2022-07-23] MEDS ORDERED: proPOfol 200 MG/20 ML (DIPRIVAN) VIAL IV ONE ×2 (09:58→10:55)
[2022-07-23] MEDS ORDERED: LIDOCAINE PF 1% 5 ML (XYLOCAINE) AMP ONE (09:58)
[2022-07-23] MEDS ORDERED: MIDAZOLAM 2 MG/2 ML (VERSED) VIAL ONE (09:58)
--- NOTE | 2022-07-23 10:00 | Progress Note-Pre Operative ---
Pre-Operative Progress Note Date of Available H&P: Jul 23, 2022 Date H&P Reviewed: Jul 23, 2022 Time H&P Reviewed: 09:50 Changes from last HP left carpal tunnel syndrome and left wrist volar ganglion cyst Pre-Operative Diagnosis: left carpal tunnel syndrome and left wrist volar ganglion cyst OMER MANCINI MD Jul 23, 2022 10:00
--- NOTE | 2022-07-23 10:01 | Progress Note-Post Operative ---
Post-Operative Progess Note Surgeon (s)/Treasury Assistant (s) Surgeon OMER MANCINI MD Treasury Assistant: Driss Henry Pre-Operative Diagnosis left carpal tunnel syndrome and left wrist volar ganglion cyst Post-Operative Diagnosis left carpal tunnel syndrome and left wrist volar ganglion cyst Procedure & Operative Findings Date of Procedure 07/23/22 Procedure Performed/Findings left carpal tunnel release and left wrist volar ganglion cyst excision Anesthesia Type GETA Estimated Blood Loss Estimated blood loss (mL): minimal Specimens/Packing Specimens Removed cyst Packing: none OMER MANCINI MD Jul 23, 2022 10:01
[2022-07-23] MEDS ORDERED: BUPIVACAINE 0.25% 30 ML (SENSORCAINE) VIAL ONE (10:02)
[2022-07-23] MEDS ORDERED: LIDOCAINE 1% INJ 20 ML VIAL ONE (10:02)
[2022-07-23] MEDS ORDERED: PROPOFOL INJECTION 50 ML IV ONE (10:09)
[2022-07-23] MEDS: LIDOCAINE 1% INJ 20 ML VIAL IJ ONE ×2 (11:02→11:29)
[2022-07-23] MEDS: BUPIVACAINE 0.25% 30 ML (SENSORCAINE) VIAL INJ ONE ×2 (11:02→11:28)
[2022-07-23] MEDS ORDERED: fentaNYL INJ 100 MCG/2 ML AMP IVP ONE (11:15)
[2022-07-23] MEDS ORDERED: ONDANSETRON 4 MG/2 ML (SDV) Z0FRAN IVP PRN (11:15)
--- NOTE | 2022-07-23 18:56 | OPERATIVE REPORT ---
DATE OF SERVICE: 07/23/2022 PREOPERATIVE DIAGNOSES: 1. Left carpal tunnel syndrome. 2. Left wrist dorsal ganglion cyst. POSTOPERATIVE DIAGNOSES: 1. Left carpal tunnel syndrome. 2. Left wrist dorsal ganglion cyst. PROCEDURES: 1. Left carpal tunnel release. 2. Left wrist dorsal ganglion cyst excision. SURGEON: Dimitrios Mancini MD CLINICAL LAB SCIENTIST: Driss Henry, who assisted throughout the procedure and closed the incisions. ANESTHESIA: General endotracheal by Dr. Garcia. TOURNIQUET TIME: 11 minutes at 300 mmHg. ESTIMATED BLOOD LOSS: Minimal. DRAINS: None. COMPLICATIONS: None. POSTOPERATIVE PLAN: Routine protocol. PATHOLOGY: Specimen was sent. The patient was transferred to the recovery room awake and in stable condition. STATEMENT OF MEDICAL NECESSITY: The patient is a 76-year-old right hand dominant female with complaints of left hand pain and paresthesias. She was noted to have atrophy of her left thumb. She had a positive Tinel's at the carpal tunnel, positive Phalen's maneuver. She also had a mass on the volar aspect of the left wrist, which was painful to palpation, this was nonpulsatile. Due to progressive symptoms and failure to improve with conservative measures, the patient elected to proceed with surgical intervention. DESCRIPTION OF PROCEDURE: After risks and benefits of procedure were discussed and questions were answered, an informed consent was signed and placed on chart, the operative site was confirmed in the preoperative holding area initialed by the surgeon. The patient was then transferred to the operating room and after adequate levels of general endotracheal anesthetic were obtained, a timeout was called, confirming the operative site. Left upper extremity was prepped and draped in the usual sterile fashion with the arm elevated, tourniquet was inflated to 250 mmHg. An incision was made in line with radial border of the ring finger overlying the transverse carpal ligament, the underlying soft tissues were carefully dissected. Transverse carpal ligament was identified and sharply incised by pushing through with the scalpel blade. The median nerve was identified and carefully protected throughout the procedure and intact at the conclusion of the procedure. The transverse carpal ligament was confirmed, fully released distally under direct visualization proximally and transverse carpal ligament was spread above and below with dissection scissors and then opened with a slightly open scissor edges while carefully protecting the nerve. This was confirmed, fully released with a [place]. A longitudinal incision was then made over the mass and underlying soft tissues were carefully dissected. Hemostasis was obtained with cautery. The mass appeared to be arising from the flexor carpi radialis tendon sheath. This was excised in total and sent for pathologic examination. The tourniquet was deflated and pressure was used for hemostasis, followed by cautery. There was brisk capillary refill noted distally. The wound was copiously irrigated and closed with 4-0 nylon in simple interrupted fashion. The carpal tunnel incision was closed with 4-0 nylon in running alternating horizontal mattress fashion. The incisions were infiltrated with plain Marcaine. A soft dressing and wrist brace were applied and the patient was transferred to the recovery room awake and in stable condition. Job ID: [id number] DocumentID: [id number] Dictated Date: 07/23/2022 11:07:04 Patient Consumer Marketer Date: 07/23/2022 18:55:34 Dictated By: DIMITRIOS MANCINI MD
--- NOTE | 2022-07-30 07:46 | Anesthesia-General Post-Op ---
General Patient Condition Mental Status/LOC: Same as Preop Cardiovascular: Satisfactory Nausea/Vomiting: Absent Respiratory: Satisfactory Pain: Controlled Complications: Absent Post Op Complications Complications None Follow Up Care/Instructions Patient Instructions None needed. Anesthesia/Patient Condition Patient Condition Post-dated progress note: Patient was doing well after the procedure. She was seen on 07-23 at approximately noon with no complaints, stable vital signs, no apparent adverse anesthesia pro blems. No complications reported per nursing. RAISA STOCKTON DO Jul 30, 2022 07:46
== END 2022-07-23 13:10 | disposition home or self-care (01) ==
LOC: SDC 07:50
PROVIDERS: ATTEND Orthopaedic Surgery
DX: G56.02 Carpal tunnel syndrome, left upper limb (principal); M67.432 Ganglion, left wrist; Z85.3 Personal history of malignant neoplasm of breast; Z85.820 Personal history of malignant melanoma of skin; Z79.82 Long term (current) use of aspirin; Z88.5 Allergy status to narcotic agent; H54.7 Unspecified visual loss; Z28.310 Unvaccinated for COVID-19
CPT/HCPCS: 87081

== ENCOUNTER → 2022-08-15 | Outpatient (RCR) | payer MEDICARE ==
[~2022-08-15] MED LIST changes: -HYDROcodone/APAP 7.5 MG/325 MG (LORTAB, LORCET PLUS) TABLET PO PRN
== END | disposition home or self-care (01) ==
LOC: CR3 07-16 16:41
PROVIDERS: ATTEND Internal Medicine
DX: Z29.8 Encounter for other specified prophylactic measures (principal)

== ENCOUNTER 2022-09-04 21:00 | Emergency (ER) | payer MEDICARE ==
[2022-09-04] MEDS ORDERED: TETANUS,DIPTH,PERTUSS P/F (BOOSTRIX) 0.5 ML VIAL IM ONE (21:45)
--- NOTE | 2022-09-04 21:52 | ED Fall/Injury ---
General Chief Complaint: Laceration Stated Complaint: FALL,HEAD LAC Nursing Triage Note: PT ARRIVAL TO ER VIA PRIVATE VEHICLE WITH COMPLAINT OF LACERATION TO FOREHEAD. PT STATES THAT SHE WAS AT HOME AND TRIPPED HITTING FACE ON TILE FLOOR. PT DENIES LOSS OF CONSCIOUSNESS. PT DENIES BEING ON BLOOD THINNERS. Source: patient History of Present Illness Date Seen by Provider: Sep 04, 2022 Time Seen by Provider: 21:25 Initial Comments PT ARRIVES VIA POV FROM HOME PT STATES SHE WAS COMING INTO THE HOUSE, AFTER BEING OUTSIDE ON HER DECK, AND SHE BENT OVER TO PICK LEAVES OFF HER GUIDE DOG ( PT IS COMPLETELY BLIND) AND SHE LOST HER BALANCE AND FELL FORWARD, HITTING HER FACE ON TILE FLOOR OCCURRED JUST PRIOR TO ARRIVAL INCIDENT WAS NOT WITNESSED. DENIES LOSS OF CONSCIOUSNESS DENIES NECK PAIN DENIES HEADACHE NO DIZZINESS NO NAUSEA/VOMITING NO PARESTHESIAS OR MOTOR DEFICITS HAS A LACERATION ABOVE LEFT BROW DENIES ANY OTHER INJURIES OR AREAS OF PAIN PT HAS BEEN DRINKING ALCOHOL TONIGHT PT IS COMPLETELY BLIND--STATES EVERYTHING IS BLACK--HAS A GUIDE DOG WITH HER AT ALL TIMES SHE IS ALSO DEAF AND HAS BILATERAL COCHLEAR IMPLANTS PT IS ON 81 MG ASPIRIN, DENIES ANY OTHER BLOOD THINNERS LAST TETANUS IS UNKNOWN PCP: DR. SYED VIBRATION ENGINEER: DR. HERNANDEZ Allergies and Home Medications Allergies Coded Allergies: Penicillins (Verified Allergy, Unknown, 07/23/22) latex (Verified Allergy, Unknown, 07/23/22) morphine (Verified Allergy, Unknown, pt has had hydrocodone in past, 07/23/22) phenylbutazone (Verified Allergy, Unknown, 07/23/22) tramadol (Verified Allergy, Unknown, 07/23/22) Patient Home Medication List Home Medication List Reviewed: Yes ALPRAZolam (ALPRAZolam) 0.25 Mg Tablet, 0.25 MG PO HS PRN for INSOMNIA, (Reported) Entered as Reported by: SILVERIO BEARDEN on 01/10/22 0826 Aspirin (Aspirin) 81 Mg Tab.chew, 81 MG PO HS, (Reported) Entered as Reported by: LYN SANCHEZ on 10/24/19 1327 Carvedilol (Carvedilol) 25 Mg Tablet, 50 MG PO BID, (Reported) Entered as Reported by: LYN SANCHEZ on 10/24/19 1327 Cholecalciferol (Vitamin D3) (Vitamin D3) 25 Mcg Capsule, 25 MCG PO DAILY, (Reported) Entered as Reported by: SILVERIO BEARDEN on 01/10/22825 Citalopram Hydrobromide (Celexa) 10 Mg Tablet, 10 MG PO DAILY, (Reported) Entered as Reported by: SILVERIO BEARDEN on 01/10/22825 Doxazosin Mesylate (Doxazosin Mesylate) 2 Mg Tablet, 2 MG PO DAILY, (Reported) Entered as Reported by: HEBERT BO on 04/15/221006 Ferrous Sulfate (Feosol) 325 Mg Tablet, 325 MG PO DAILY, (Reported) Entered as Reported by: SILVERIO BEARDEN on 01/10/22825 Furosemide (Furosemide) 40 Mg Tablet, 40 MG PO DAILY, (Reported) Entered as Reported by: SILVERIO BEARDEN on 01/10/22825 Levothyroxine Sodium (Levothyroxine) 175 Mcg Capsule, 175 MCG PO DAILY, (Reported) Entered as Reported by: SILVERIO BEARDEN on 01/10/22825 Multivitamin (Multi-Vitamin Daily) 1 Each Tablet, 1 EACH PO DAILY, (Reported) Entered as Reported by: SILVERIO BEARDEN on 01/10/22825 Omeprazole (Omeprazole) 20 Mg Tablet.dr, 20 MG PO BID, (Reported) Entered as Reported by: SILVERIO BEARDEN on 01/10/22825 Potassium Chloride (Potassium Chloride) 10 Meq Tablet.er, 20 MEQ PO DAILY, (Reported) Entered as Reported by: LYN SANCHEZ on 10/24/191326 Potassium Chloride (Potassium Chloride) 10 Meq Capsule.er, 10 MEQ PO HS, (Reported) Entered as Reported by: SILVERIO BEARDEN on 01/10/22825 Raloxifene HCl (Raloxifene HCl) 60 Mg Tablet, 60 MG PO DAILY, (Reported) Entered as Reported by: LYN SANCHEZ on 10/24/19 132 Rosuvastatin Calcium (Rosuvastatin Calcium) 20 Mg Tablet, 20 MG PO HS, (Reported) Entered as Reported by: HEBERT BO on 04/15/221006 Valsartan (Valsartan) 320 Mg Tablet, 320 MG PO DAILY, (Reported) Entered as Reported by: SILVERIO BEARDEN on 2/25/22 0826 [oxygen] , 2 L HS, (Reported) Entered as Reported by: SILVERIO BEARDEN on 01/10/22 0826 Review of Systems Review of Systems Constitutional: no symptoms reported Eyes: See HPI, Blindness Ears, Nose, Mouth, Throat: no symptoms reported Respiratory: no symptoms reported Cardiovascular: no symptoms reported Gastrointestinal: no symptoms reported Genitourinary: no symptoms reported Musculoskeletal: no symptoms reported Skin: see HPI Psychiatric/Neurological: No Symptoms Reported Past Jddegtx-Wdqnxb-Thzqlu Hx Patient Social History Tobacco Use?: No Use of E-Cig and/or Vaping dev: No Substance use?: No Alcohol Use?: Yes Alcohol type: Hard Liquor, Wine Alcohol Frequency: Couple times a week Pt feels they are or have been: No Immunizations Up To Date Tetanus Booster (TDap): Unknown PED Vaccines UTD: No Influenza Vaccine Up-to-Date: Yes; Up-to-Date First/Initial COVID19 Vaccinat: NO Second COVID19 Vaccination Hu: NO Third COVID19 Vaccination Date: NO 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: [employer] Seasonal Allergies Seasonal Allergies: Yes Past Medical History Surgery/Hospitalization HX: RIGHT MASTECTOMY + LYMPH NODE REMOVAL 1995 Surgeries: Yes (LAP OOPHORECTOMY; BILATERAL TKR;R SHOULDER REPLACEMENT;BILAT COCHLEAR IMPLA) Breast, Ear Surgery, 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, Orthopedic Respiratory: Yes (O2 AT NIGHT, PULMONARY HTN) Pneumonia Currently Using CPAP: No Currently Using BIPAP: No Cardiac: Yes High Cholesterol, Hypertension Neurological: Yes Stroke 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 Disorders: Yes (HYSTERECTOMY AT AGE 30) Female 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 Sexually Transmitted Disease: No HIV/AIDS: No Genitourinary: No Gastrointestinal: Yes Gastroesophageal Reflux Musculoskeletal: Yes (BILAT TKR; R SHOULDER REPLACEMENT) Arthritis, Chronic Back Pain Endocrine: Yes Hypothyroidsim HEENT: Yes (COMPLETELY BLIND; DEAF--BILAT COCHLEAR IMPLANTS) Cataract Loss of Vision: Bilateral Hearing Impairment: Deaf Cancer: Yes Breast, Melanoma Did You Recieve Any Treatments: Yes What Type of Treatment Did You: Surgical Intervention RIGHT MASTECTOMY AND LYMPH NODE REMOVAL Psychosocial: Yes Anxiety, Depression Integumentary: No Blood Disorders: No Adverse Reaction/Blood Tranf: No Family Medical History Cancer G8 SISTER G8 SISTER Family history: Cardiovascular disease 19 FATHER 19 MOTHER Family history: Hypertension 19 FATHER 19 MOTHER G8 BROTHER G8 SISTER G8 SISTER G8 SISTER G8 SISTER Myocardial infarction 19 FATHER 19 MOTHER Physical Exam Vital Signs Vital Signs - First Documented 09/04/22 21:09 Temp 36.8 Pulse 62 Resp 20 B/P (MAP) 153/85 (107) Pulse Ox 96 O2 Delivery Room Air Capillary Refill : Less Than 3 Seconds Height, Weight, BMI Height: 5'6.00" Weight: 148lbs. 8.0oz. 67.417037sk; 27.44 BMI Method:Estimated General Appearance: WD/WN, no apparent distress, other (+ ODOR OF ETOH) HEENT: PERRL/EOMI (PUPILS EQUAL AT 2 MM, NO APPRECIABLE LIGHT REACTION; EOMI), other (NO HYPHEMA OR CONJUNCTIVAL HEMORRHAGE. NO EYE PAIN. EARLY LEFT PERIORBITAL HEMATOMA; 4 CM LACERATION ABOVE LEFT BROW. BILAT COCHLEAR IMPLANTS) Neck: non-tender, full range of motion, supple, normal inspection Cardiovascular: regular rate, rhythm Respiratory: chest non-tender, normal breath sounds Gastrointestinal: non tender, soft Back: no CVA tenderness, no vertebral tenderness Extremities: normal range of motion, non-tender, normal inspection, normal capillary refill Neurologic/Psychiatric: no motor/sensory deficits, alert, normal mood/affect, oriented x 3 Skin: normal color, warm/dry, ecchymosis (LEFT PERIORBITAL HEMATOMA--SWELLING AND BRUISING. ), other (4 CM LACERATION ABOVE LEFT BROW) [place] Coma Score Best Eye Response: (4) Open Spontaneously Best Verbal Response: (5) Oriented Best Motor Response: (6) Obeys Commands [place] Total: 15 Procedures/Interventions Wound Location: Face Other Wound Location ABOVE LEFT BROW Wound Length (cm): 4 Wound's Depth, Shape: linear, sub Q Wound Explored: clean Betadine Prep?: No (BETASEPT AND SALINE) Other Closure Supply: Steri Strip 11/19", Mastisol, Wound Adhesive Progress/Results/Core Measures Results/Orders My Orders Orders - TRICIA DE LA O DO Ct Head/Face/Cervical Wo (09/04/22 21:38) Dipht,Pertuss(Acell),Tet Adult (Boostrix (09/04/22 21:45) Medications Given in ED Current Medications Medications Dose Ordered Sig/Cong Route Start Time Stop Time Status Last Admin Dose Admin Diphtheria/ Tetanus/Acell Pertussis 0.5 ml ONCE ONCE IM 09/04/22 21:45 09/04/22 21:46 DC 09/04/22 21:46 0.5 ML Vital Signs/I&O 09/04/22 09/04/22 21:09 23:27 Temp 36.8 Pulse 62 62 Resp 20 B/P (MAP) 153/85 (107) 114/60 Pulse Ox 96 93 O2 Delivery Room Air Room Air Blood Pressure Mean: 107 Progress Progress Note : Progress Note NO DETERIORATION IN PT'S CONDITION DURING ER STAY Diagnostic Imaging Comments CT HEAD/MAXILLOFACIALS/CERVICAL SPINE--PER STAT RAD VIA FAX AT 8529 -NO SKULL FRACTURE OR INTRACRANIAL HEMORRHAGE OR MASS EFFECT -NO FACIAL FRACTURE -NO CERVICAL SPINE FRACTURE OR MAL-ALIGNMENT Reviewed: Reviewed by Me Departure Impression Primary Impression: Unwitnessed fall Additional Impressions: Fall from standing Forehead laceration FACIAL AND LEFT PERIORBITAL CONTUSION Efghhvrcbk-icceqslzy-vfiymyf (DPT) vaccination administered at current visit Closed head injury without loss of consciousness Disposition: HOME, SELF-CARE Condition: Stable Departure-Patient Inst. Decision time for Depature: 23:16 Referrals: ISAIAH SYED DO (PCP/Family) Primary Care Physician Patient Instructions: [facility] ED, Diphtheria and Tetanus Toxoids, and Acellular Pertussis Vaccine, Laceration Repair With Glue (DC), Minor Head Injury, Adult ED, Preventing Falls in Older Adults Add. Discharge Instructions: LEAVE STERI STRIPS AND SKIN GLUE ALONE--WILL FALL OFF ON THEIR OWN IN A FEW DAYS DO NOT GET WET NO LOTIONS, CREAMS OR OINTMENTS TO AREA ICE TO AREA AT 20 MINUTE INTERVALS TYLENOL NEEDED FOR PAIN RETURN TO ER IF SYMPTOMS WORSEN FOLLOW UP WITH YOUR DR NEEDED All discharge instructions reviewed with patient and/or family. Voiced understanding. Images Head/Face 1 - Laceration TRICIA DE LA O DO Sep 04, 2022 21:52
[2022-09-04 23:27] VITALS: BP 114/60
--- NOTE | 2022-09-05 07:28 | Diagnostic Imaging Report ---
INDICATION: Trauma. TECHNIQUE: Multiple contiguous axial images were obtained through the head, neck, and facial bones without the use of intravenous contrast. Sagittal and coronal reformations through the cervical spine and facial bones were also performed. Auto Exposure Controls were utilized during the CT exam to meet ALARA standards for radiation dose reduction. There is no recent prior CT for comparison. CT head findings: There were no extra-axial fluid collections. No intracranial hemorrhage. There are mild atrophic changes. There is no subdural or epidural collection. Ventricles are normal in size. There is artifact from patient's bilateral cochlear implants. There is no calvarial fracture. CT cervical spine findings: There was no evidence of cervical spine fracture. There is no subluxation or malalignment. There is diffuse degenerative change throughout the cervical levels with disc space narrowing and osteophyte formation at all levels. CT maxillofacial findings: There is no evidence of facial bone fracture. The sinuses are well aerated. Orbital contents appear unremarkable. IMPRESSION: CT brain shows no acute intracranial abnormality or calvarial fracture. There is some artifact from patient's bilateral cochlear implants. CT cervical spine shows degenerative changes with no acute fracture or subluxation. CT maxillofacial demonstrates no facial fracture or sinus opacification. Dictated by: Dictated on workstation # [id number]
== END 2022-09-04 23:27 | disposition home or self-care (01) ==
LOC: EDUNIT# 21:00 → ER 21:01
DX: S09.90XA Unspecified injury of head, initial encounter (principal); S01.81XA Laceration without foreign body of other part of head, initial encounter; S05.12XA Contusion of eyeball and orbital tissues, left eye, initial encounter; Z86.73 Personal history of transient ischemic attack (TIA), and cerebral infarction without residual deficits; Z23 Encounter for immunization; Z91.040 Latex allergy status; Z79.82 Long term (current) use of aspirin; W01.198A Fall on same level from slipping, tripping and stumbling with subsequent striking against other object, initial encounter; Y92.009 Unspecified place in unspecified non-institutional (private) residence as the place of occurrence of the external cause
CPT/HCPCS: 12011; 70450; 70486; 72125; 90715

== ENCOUNTER 2022-10-06 14:25 | Outpatient (RCR) | payer MEDICARE | END 2022-10-15 | disposition home or self-care (01) | LOC: CR3 14:25 | PROVIDERS: ATTEND Internal Medicine | DX: Z29.8 Encounter for other specified prophylactic measures (principal) ==

== ENCOUNTER → 2022-10-29 | Outpatient (CLI) | payer MEDICARE ==
--- NOTE | 2022-10-29 12:18 | Diagnostic Imaging Report ---
Indication: Routine screening. Comparison is made with prior mammogram 10/28/2021 and 10/22/2020. 2-D and 3-D bilateral screening mammography was performed with CAD. CAD is utilized. The current study was also evaluated with a Computer Aided Detection (CAD) system. Both breasts are heterogeneously dense, limiting the sensitivity of mammography. Cardiac loop recorder overlies the medial left breast soft tissues. The parenchymal pattern is stable. No dominant mass or malignant-appearing microcalcifications are seen. Axillae are unremarkable. IMPRESSION: BI-RADS Category 2 No mammographic features suspicious for malignancy are identified. ACR BI-RADS Category 2: Benign findings. Result letter will be mailed to the patient. Note: At least 10% of breast cancer is not imaged by mammography. Dictated by: Dictated on workstation # [id number]
== END ==
LOC: RAD 11:07
PROVIDERS: ATTEND Internal Medicine Hematology & Oncology
DX: Z12.31 Encounter for screening mammogram for malignant neoplasm of breast (principal); Z85.3 Personal history of malignant neoplasm of breast
CPT/HCPCS: 77063; 77067

== ENCOUNTER 2022-11-24 14:33 | Emergency (ER) | payer MEDICARE ==
[~2022-11-24] VITALS: Ht 167 cm; Wt 76.0 kg
[2022-11-24] MEDS ORDERED: ASPIRIN 81 MG CHEW (CHILDREN'S ASA) PO ONE (14:45)
[2022-11-24] MEDS ORDERED: NITROGLYCERIN 0.4 MG SL TABS BTL 25'S SL PRN (14:45)
[2022-11-24 14:51] LABS: BASOPHILS % (AUTO) 1 % (0-10); EOSINOPHILS # (AUTO) 0.3 10^3/uL (0.0-0.3); EOSINOPHILS % (AUTO) 4 % (0-10); HEMATOCRIT 39 % (35-52); HEMOGLOBIN 13.4 g/dL (11.5-16.0); LYMPHOCYTES # (AUTO) 2.1 10^3/uL (1.0-4.0); LYMPHOCYTES % (AUTO) 24 % (12-44); MEAN CORPUSCULAR HEMOGLOBIN 31 pg (25-34); MEAN CORPUSCULAR HGB CONC 34 g/dL (32-36); MEAN CORPUSCULAR VOLUME 92 fL (80-99); MEAN PLATELET VOLUME 10.5 fL (9.0-12.2); MONOCYTES # (AUTO) 0.7 10^3/uL (0.0-1.0); MONOCYTES % (AUTO) 8 % (0-12); NEUTROPHILS # (AUTO) 5.6 10^3/uL (1.8-7.8); NEUTROPHILS % (AUTO) 64 % (42-75); PLATELET COUNT 283 10^3/uL (130-400); WHITE BLOOD COUNT 8.7 10^3/uL (4.3-11.0)
--- NOTE | 2022-11-24 14:51 | ED Chest Pain ---
General Chief Complaint: Chest Pain Stated Complaint: CHEST PAINS Nursing Triage Note: Pt here with chest pain that she states starts in her back and radiates through to her chest. Pt states onset was last night while at rest. Source: patient (DIFFICULT HISTORIAN, DIFFICULT TO KEEP ON SUBJECT) History of Present Illness Date Seen by Provider: Nov 24, 2022 Time Seen by Provider: 14:38 Initial Comments PT ARRIVES VIA POV FROM HOME C/O CHEST PAIN FOR SEVERAL HOURS--CANNOT STATE WHEN IT STARTED, STATES SHE DID NOT HAVE IT WHEN SHE WENT TO BED STATES PAIN IS IN HER BACK AND IN THE CENTER OF HER CHEST RATES PAIN 3-4/10 + SHORTNESS OF BREATH NO SWEATS NO NAUSEA/VOMITING NO PALPITATIONS STATES SHE DOES GET A LITTLE LIGHTHEADED WHEN SHE WALKS. PT HAS HISTORY OF V-TACH, AND HAS A LOOP RECORDER IN PLACE, SHE HAS A HISTORY OF HYPERTROPHIC CARDIOMYOPATHY SHE SEES DR. HERNANDEZ LOCALLY, AND DR. MAIN, HATCHERY LABORER AT SHE ALSO SEES DR. DODGE AT [facility]. SHE HAS NOT HAD ANY CARDIAC STENTS OR ANGIOPLASTY PCP:DR. SYED DRAW PRESS OPERATOR: DR. HERNANDEZ Allergies and Home Medications Allergies Coded Allergies: Penicillins (Verified Allergy, Unknown, 07/23/22) latex (Verified Allergy, Unknown, 07/23/22) morphine (Verified Allergy, Unknown, pt has had hydrocodone in past, 07/23/22) phenylbutazone (Verified Allergy, Unknown, 07/23/22) tramadol (Verified Allergy, Unknown, 07/23/22) Patient Home Medication List ALPRAZolam (ALPRAZolam) 0.25 Mg Tablet, 0.25 MG PO HS PRN for INSOMNIA, (Reported) Entered as Reported by: SILVERIO BEARDEN on 01/10/22825 Aspirin (Aspirin) 81 Mg Tab.chew, 81 MG PO HS, (Reported) Entered as Reported by: LYN SANCHEZ on 10/24/19 132 Carvedilol (Carvedilol) 25 Mg Tablet, 50 MG PO BID, (Reported) Entered as Reported by: LYN SANCHEZ on 10/24/19 132 Cholecalciferol (Vitamin D3) (Vitamin D3) 25 Mcg Capsule, 25 MCG PO DAILY, (Reported) Entered as Reported by: SILVERIO BEARDEN on 01/10/22825 Citalopram Hydrobromide (Celexa) 10 Mg Tablet, 10 MG PO DAILY, (Reported) Entered as Reported by: SILVERIO BEARDEN on 01/10/22825 Doxazosin Mesylate (Doxazosin Mesylate) 2 Mg Tablet, 2 MG PO DAILY, (Reported) Entered as Reported by: HEBERT BO on 04/15/221006 Ferrous Sulfate (Feosol) 325 Mg Tablet, 325 MG PO DAILY, (Reported) Entered as Reported by: SILVERIO BEARDEN on 01/10/22825 Furosemide (Furosemide) 40 Mg Tablet, 40 MG PO DAILY, (Reported) Entered as Reported by: SILVERIO BEARDEN on 01/10/22825 Levothyroxine Sodium (Levothyroxine) 175 Mcg Capsule, 175 MCG PO DAILY, (Reported) Entered as Reported by: SILVERIO BEARDEN on 01/10/22825 Multivitamin (Multi-Vitamin Daily) 1 Each Tablet, 1 EACH PO DAILY, (Reported) Entered as Reported by: SILVERIO BEARDEN on 01/10/22825 Omeprazole (Omeprazole) 20 Mg Tablet.dr, 20 MG PO BID, (Reported) Entered as Reported by: SILVERIO BEARDEN on 01/10/22825 Potassium Chloride (Potassium Chloride) 10 Meq Tablet.er, 20 MEQ PO DAILY, (Reported) Entered as Reported by: LYN SANCHEZ on 10/24/19 1327 Potassium Chloride (Potassium Chloride) 10 Meq Capsule.er, 10 MEQ PO HS, (Reported) Entered as Reported by: SILVERIO BEARDEN on 01/10/22825 Raloxifene HCl (Raloxifene HCl) 60 Mg Tablet, 60 MG PO DAILY, (Reported) Entered as Reported by: LYN SANCHEZ on 10/24/19 1327 Rosuvastatin Calcium (Rosuvastatin Calcium) 20 Mg Tablet, 20 MG PO HS, (Reported) Entered as Reported by: HEBERT BO on 04/15/221006 Valsartan (Valsartan) 320 Mg Tablet, 320 MG PO DAILY, (Reported) Entered as Reported by: SILVERIO BEARDEN on 01/10/22825 [oxygen] , 2 L HS, (Reported) Entered as Reported by: SILVERIO BEARDEN on 01/10/22825 Past Rgodsil-Njqlnk-Jsjdfm Hx Immunizations Up To Date Tetanus Booster (TDap): Unknown PED Vaccines UTD: No First/Initial COVID19 Vaccinat: 06/06 Second COVID19 Vaccination Hu: 06/06 Third COVID19 Vaccination Date: 06/06 Seasonal Allergies Seasonal Allergies: Yes Past Medical History Surgery/Hospitalization HX: RIGHT MASTECTOMY + LYMPH NODE REMOVAL 1995 Surgeries: Yes (LAP OOPHORECTOMY; BILATERAL TKR;R SHOULDER REPLACEMENT;BILAT COCHLEAR IMPLA) Breast, Ear Surgery, 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, Orthopedic Respiratory: Yes (O2 AT NIGHT, PULMONARY HTN) Pneumonia Currently Using CPAP: No Currently Using BIPAP: No Cardiac: Yes High Cholesterol, Hypertension Neurological: Yes Stroke 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 Disorders: Yes (HYSTERECTOMY AT AGE 30) Female 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 Disorders: Denies 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 Sexually Transmitted Disease: No HIV/AIDS: No Genitourinary: No Gastrointestinal: Yes Gastroesophageal Reflux Musculoskeletal: Yes (BILAT TKR; R SHOULDER REPLACEMENT) Arthritis, Chronic Back Pain Endocrine: Yes Hypothyroidsim HEENT: Yes (COMPLETELY BLIND; DEAF--BILAT COCHLEAR IMPLANTS) Cataract Loss of Vision: Bilateral Hearing Impairment: Deaf Cancer: Yes Breast, Melanoma Did You Recieve Any Treatments: Yes What Type of Treatment Did You: Surgical Intervention Psychosocial: Yes Anxiety, Depression Integumentary: No Blood Disorders: No Adverse Reaction/Blood Tranf: No Family Medical History Cancer G8 SISTER G8 SISTER Family history: Cardiovascular disease 19 FATHER 19 MOTHER Family history: Hypertension 19 FATHER 19 MOTHER G8 BROTHER G8 SISTER G8 SISTER G8 SISTER G8 SISTER Myocardial infarction 19 FATHER 19 MOTHER CARDIAC CATH 04/15/[address] HERNANDEZ: HEMODYNAMICS: Pulmonary artery pressure was 40/16 with a mean of 29 mmHg. Mean pulmonary wedge pressure was 21 mmHg. Right ventricular pressure was 41/11. Mean right atrial pressure was 7 mmHg. Pulmonary vascular resistance was 2.18 Wood units. Cardiac output by thermodilution was 5.83 and the cardiac index by thermodilution was 3.04. CONCLUSIONS: 1. Mild to moderate pulmonary hypertension. 2. Moderate elevation of pulmonary wedge pressure. DISCUSSION AND RECOMMENDATIONS: We will discuss the results with the patient's picker feeder, Dr. Dodge. Diuretic therapy appears appropriate, given that there is evidence of some degree of heart failure, likely diastolic dysfunction, given that left heart catheterization earlier this year, did not show significant coronary artery disease and left ventricular ejection fraction was 60%. Left ventricular end-diastolic pressure at that time was 17 mmHg. Outpatient followup is advised. DATE OF SERVICE: 04/22/[address] HERNANDEZ PREOPERATIVE DIAGNOSIS: Near syncope. POSTOPERATIVE DIAGNOSIS: Near syncope. PROCEDURE PERFORMED: Implantable loop recorder implantation. INDICATIONS FOR PROCEDURE: The patient is a 76-year-old lady, who has been experiencing symptoms of near syncope that lasted several seconds and they are quite infrequent. Implantable loop recorder was carried out today after having obtained an informed consent. DESCRIPTION OF PROCEDURE: [facility] The left prepectoral area was prepared and draped in the usual sterile fashion. Lidocaine 1% was used for local anesthesia. The tools provided with the Travefy LINQ II device were used to make a subcutaneous pocket anterior to the left fourth intercostal space into which the device was placed. Dermabond and Steri-Strips were used to close the skin edges. She tolerated the procedure well. The serial number of the device is [id number]. DATE OF SERVICE: 07/23/[address] MANCINI PREOPERATIVE DIAGNOSES: 1. Left carpal tunnel syndrome. 2. Left wrist dorsal ganglion cyst. POSTOPERATIVE DIAGNOSES: 1. Left carpal tunnel syndrome. 2. Left wrist dorsal ganglion cyst. PROCEDURES: 1. Left carpal tunnel release. 2. Left wrist dorsal ganglion cyst excision. Physical Exam Vital Signs Vital Signs - First Documented 11/24/22 14:38 Pulse 68 Resp 18 B/P (MAP) 150/80 (103) Pulse Ox 96 O2 Delivery Simple Mask Capillary Refill : Less Than 3 Seconds Height, Weight, BMI Height: 5'6.00" Weight: 148lbs. 8.0oz. [id number]; 27.00 BMI Method:Estimated General Appearance: No Apparent Distress, WD/WN HEENT: Other (PT IS BLIND. BILATERAL COCHLEAR IMPLANTS. ) Neck: Normal Inspection Respiratory: Chest Non Tender, Normal Breath Sounds, No Accessory Muscle Use, No Respiratory Distress Cardiovascular: Regular Rate, Rhythm, No Edema, No JVD, No Murmur, Normal Peripheral Pulses Gastrointestinal: Non Tender, Soft Extremity: Normal Capillary Refill, Normal Inspection, Normal Range of Motion, Non Tender, No Calf Tenderness, No Pedal Edema Neurologic/Psychiatric: Alert, Oriented x3, No Motor/Sensory Deficits, Normal Mood/Affect Skin: Normal Color, Warm/Dry Progress/Results/Core Measures Results/Orders Lab Results Laboratory Tests Test 11/24/22 14:45 11/24/22 16:38 Range/Units White Blood Count 8.7 4.3-11.0 10^3/uL Red Blood Count 4.28 3.80-5.11 10^6/uL Hemoglobin 13.4 11.5-16.0 g/dL Hematocrit 39 35-52 % Mean Corpuscular Volume 92 80-99 fL Mean Corpuscular Hemoglobin 31 25-34 pg Mean Corpuscular Hemoglobin Concent 34 32-36 g/dL Red Cell Distribution Width 13.5 10.0-14.5 % Platelet Count 283 130-400 10^3/uL Mean Platelet Volume 10.5 9.0-12.2 fL Immature Granulocyte % (Auto) 0 % Neutrophils (%) (Auto) 64 42-75 % Lymphocytes (%) (Auto) 24 12-44 % Monocytes (%) (Auto) 8 0-12 % Eosinophils (%) (Auto) 4 0-10 % Basophils (%) (Auto) 1 0-10 % Neutrophils # (Auto) 5.6 1.8-7.8 10^3/uL Lymphocytes # (Auto) 2.1 1.0-4.0 10^3/uL Monocytes # (Auto) 0.7 0.0-1.0 10^3/uL Eosinophils # (Auto) 0.3 0.0-0.3 10^3/uL Basophils # (Auto) 0.0 0.0-0.1 10^3/uL Immature Granulocyte # (Auto) 0.0 0.0-0.1 10^3/uL Prothrombin Time 13.0 12.2-14.7 SEC INR Comment 0.9 0.8-1.4 Activated Partial Thromboplast Time 34 24-35 SEC D-Dimer < 0.27 0.00-0.49 UG/ML Sodium Level 140 135-145 MMOL/L Potassium Level 3.2 L 3.6-5.0 MMOL/L Chloride Level 100 98-107 MMOL/L Carbon Dioxide Level 31 21-32 MMOL/L Anion Gap 9 5-14 MMOL/L Blood Urea Nitrogen 13 7-18 MG/DL Creatinine 0.72 0.60-1.30 MG/DL Estimat Glomerular Filtration Rate 87 BUN/Creatinine Ratio 18 Glucose Level 101 70-105 MG/DL Calcium Level 9.8 8.5-10.1 MG/DL Corrected Calcium 8.5-10.1 MG/DL Magnesium Level 1.8 1.6-2.4 MG/DL Total Bilirubin 0.6 0.1-1.0 MG/DL Aspartate Amino Transf (AST/SGOT) 26 5-34 U/L Alanine Aminotransferase (ALT/SGPT) 34 0-55 U/L Alkaline Phosphatase 34 L 40-136 U/L Total Creatine Kinase 93 29-168 U/L Creatine Kinase MB 2.3 <6.6 NG/ML Myoglobin 47.4 10.0-92.0 NG/ML Troponin I < 0.028 < 0.028 <0.028 NG/ML B-Type Natriuretic Peptide 86.8 <100.0 PG/ML Total Protein 7.4 6.4-8.2 GM/DL Albumin 4.7 H 3.2-4.5 GM/DL Amylase Level 24 L 25-125 U/L Lipase 28 8-78 U/L My Orders Orders - TRICIA DE LA O DO Cbc With Automated Diff (11/24/22 14:38) Magnesium (11/24/22 14:38) Chest 1 View, Ap/Pa Only (11/24/22 14:38) Ekg Tracing (11/24/22 14:38) Comprehensive Metabolic Panel (11/24/22 14:38) Myoglobin Serum (11/24/22 14:38) Protime With Inr (11/24/22 14:38) Partial Thromboplastin Time (11/24/22 14:38) O2 (11/24/22 14:38) Monitor-Rhythm Ecg Trace Only (11/24/22 14:38) Ed Iv/Invasive Line Start (11/24/22 14:38) Creatine Kinase (11/24/22 14:38) Creatine Kinase Mb (11/24/22 14:38) Lipase (11/24/22 14:38) Amylase (11/24/22 14:38) Bnp Boundary (11/24/22 14:38) Fibrin Degradation Products (11/24/22 14:38) Troponin I Boundary (11/24/22 14:38) Nitroglycerin 0.4 Mg Btl 25's (Nitrostat (11/24/22 14:45) Aspirin Chewable Tablet (Baby Aspirin Ch (11/24/22 14:45) Ekg Tracing (11/24/22 16:36) Troponin I Boundary (11/24/22 16:36) Medications Given in ED Current Medications Medications Dose Ordered Sig/Cong Route Start Time Stop Time Status Last Admin Dose Admin Aspirin 324 mg ONCE ONCE PO 11/24/22 14:45 11/24/22 14:46 DC 11/24/22 14:52 324 MG Nitroglycerin 0.4 mg UD PRN SL 11/24/22 14:45 11/24/22 14:53 0.4 MG Vital Signs/I&O 11/24/22 14:38 Pulse 68 Resp 18 B/P (MAP) 150/80 (103) Pulse Ox 96 O2 Delivery Simple Mask Blood Pressure Mean: 103 Progress Progress Note : Progress Note GIVEN: -ASPIRIN -NTG X 1--PAIN COMPLETELY RESOLVED. WILL DO REPEAT TROPONIN AND EKG, AND CONTINUE TO MONITOR REPEAT EKG IS NORMAL AND UNCHANGED REPEAT TROPONIN Initial ECG Impression Date: Nov 24, 2022 Initial ECG Impression Time: 14:46 Initial ECG Rate: 60 Initial ECG Rhythm: Normal Sinus Initial ECG Comparisson: Unchanged (NO CHANGE FROM 04/15/22) Comment INTERPRETED BY ME EKG : EKG Time: 16:41 Rate: 58 Rhythm: Normal Sinus ECG Comparisson: Unchanged Comment INTERPRETED BY ME Diagnostic Imaging Comments CXR--PER RADIOLOGIST REPORT AT 1536 Frontal chest obtained at 3:00 p.m. and compared to 01/28/2022. Heart is borderline in size. Mediastinal silhouette is unremarkable. There is a loop recorder over the chest wall. There is no focal infiltrate or pneumothorax or pleural fluid. Impression: Borderline heart size with no acute process in the chest. Reviewed: Reviewed by Me CP/AMI: Aspirin, ECG, Nitrates Departure Impression Primary Impression: Chest pain Additional Impression: Hx of ventricular tachycardia Disposition: 01 HOME, SELF-CARE Condition: Improved Departure-Patient Inst. Decision time for Depature: 17:40 Referrals: DOROTEO HERNANDEZ MD FACP FACC CCDS ISAIAH SYED DO (PCP/Family) Primary Care Physician Patient Instructions: Chest Pain (DC) Add. Discharge Instructions: HOME, REST CONTINUE YOUR REGULAR MEDICATIONS PRESCRIBED FOLLOW UP WITH DR. HERNANDEZ--CALL HIS OFFICE IN THE MORNING TO SCHEDULE AN APPOIN TMENT RETURN TO ER IF YOUR CHEST PAIN RETURNS. All discharge instructions reviewed with patient and/or family. Voiced underst anding. TRICIA DE LA O DO Nov 24, 2022 14:51
[2022-11-24 15:02] LABS: INR 0.9 (0.8-1.4)
[2022-11-24 15:10] LABS: ALANINE AMINOTRANSFERASE 34 U/L (0-55); ALBUMIN 4.7 GM/DL (3.2-4.5); ALKALINE PHOSPHATASE 34 U/L (40-136); AMYLASE 24 U/L (25-125); BILIRUBIN,TOTAL 0.6 MG/DL (0.1-1.0); BUN/CREATININE RATIO 18; CALCIUM 9.8 MG/DL (8.5-10.1); CARBON DIOXIDE 31 MMOL/L (21-32); CHLORIDE 100 MMOL/L (98-107); CREATINE KINASE 93 U/L (29-168); CREATININE SERUM 0.72 MG/DL (0.60-1.30); GFR ESTIMATED 87; GLUCOSE 101 MG/DL (70-105); LIPASE 28 U/L (8-78); MAGNESIUM 1.8 MG/DL (1.6-2.4); POTASSIUM 3.2 MMOL/L (3.6-5.0); SODIUM 140 MMOL/L (135-145); TOTAL PROTEIN 7.4 GM/DL (6.4-8.2)
[2022-11-24 15:17] LABS: CREATINE KINASE MB 2.3 NG/ML (<6.6)
--- NOTE | 2022-11-24 15:25 | Diagnostic Imaging Report ---
Indication: Chest pain Frontal chest obtained at 3:00 p.m. and compared to 01/28/2022. Heart is borderline in size. Mediastinal silhouette is unremarkable. There is a loop recorder over the chest wall. There is no focal infiltrate or pneumothorax or pleural fluid. Impression: Borderline heart size with no acute process in the chest. Dictated by: Dictated on workstation # [id number]
[2022-11-24 17:55] VITALS: BP 150/80
== END 2022-11-24 17:56 | disposition home or self-care (01) ==
LOC: EDUNIT# 14:33 → ER 14:36
DX: R07.9 Chest pain, unspecified (principal); J18.9 Pneumonia, unspecified organism; Z99.81 Dependence on supplemental oxygen; Z91.040 Latex allergy status; Z86.79 Personal history of other diseases of the circulatory system; Z88.5 Allergy status to narcotic agent
CPT/HCPCS: 36415; 71045; 80053; 82150; 82550; 82553; 83690; 83735; 83874; 83880; 84484; 85025; 85379; 85610; 85730; 93005; 93041

== ENCOUNTER 2022-12-08 13:57 | Outpatient (RCR) | payer MEDICARE ==
[~2022-12-08 13:57] MED LIST changes: -POTA10CA43 PO; +POTA10CA44 PO
== END 2022-12-15 | disposition home or self-care (01) ==
LOC: CR3 13:57
PROVIDERS: ATTEND Internal Medicine
DX: Z29.8 Encounter for other specified prophylactic measures (principal)

== ENCOUNTER → 2023-01-01 | Outpatient (CLI) | payer MEDICARE | LOC: CARD 09:21 | PROVIDERS: ATTEND Internal Medicine Cardiovascular Disease | DX: I27.21 Secondary pulmonary arterial hypertension (principal) | CPT/HCPCS: 93306 ==

== ENCOUNTER → 2023-01-13 | Outpatient (CLI) | payer MEDICARE ==
[~2023-01-13] VITALS: Ht 167 cm; Wt 76.0 kg
[~2023-01-13] MED LIST changes: +CATHETER FLUSH 10 ML SYR IVP PRN; +REGADENOSON 0.4 MG/5 ML SYR (LEXISCAN) IV ONE
[2023-01-13 09:37] VITALS: BP 176/86
--- NOTE | 2023-01-13 18:12 | STRESS TEST ---
DATE OF SERVICE: 01/13/2023 RESTING AND POST REGADENOSON TECHNETIUM-99M TETROFOSMIN SPECT CT IMAGING CLINICAL DIAGNOSIS: Chest discomfort. Baseline images were carried out after injection of 10.05 mCi of technetium-99m tetrofosmin. This was followed by 0.4 mg regadenoson and 28.8 mCi of technetium-99m Tetrofosmin for stress imaging. The electrocardiogram did not change significantly with the regadenoson infusion. The patient noted some shortness of breath, which resolved in a few minutes. Review of images at rest and following stress does not indicate any distinct perfusion defects consistent with significant myocardial ischemia or infarction. Gated images show normal global left ventricular systolic function with normal regional wall motion. Left ventricular ejection fraction is calculated to be 56%. CONCLUSIONS: 1. No evidence of any significant myocardial ischemia or infarction on this study. 2. Normal regional wall motion. 3. Normal global left ventricular systolic function with a calculated ejection fraction of 56%. Job ID: [id number] DocumentID: [id number] Dictated Date: 01/13/2023 17:35:07 Platform Operations Director Date: 01/13/2023 18:10:00 Dictated By: DOROTEO HERNANDEZ MD; THAO; FACP; FACC;
== END ==
LOC: CARD 08:30
PROVIDERS: ATTEND Internal Medicine Cardiovascular Disease
DX: R07.89 Other chest pain (principal)
CPT/HCPCS: 78452; 93017; A9502

== ENCOUNTER 2023-02-06 15:03 | Outpatient (RCR) | payer MEDICARE ==
[~2023-02-06 15:03] MED LIST changes: -CATHETER FLUSH 10 ML SYR IVP PRN; -REGADENOSON 0.4 MG/5 ML SYR (LEXISCAN) IV ONE
== END 2023-02-12 | disposition home or self-care (01) ==
LOC: CR3 15:03
PROVIDERS: ATTEND Internal Medicine
DX: Z29.8 Encounter for other specified prophylactic measures (principal)

== ENCOUNTER 2023-04-10 15:45 | Outpatient (RCR) | payer MEDICARE | END 2023-04-14 | disposition home or self-care (01) | LOC: CR3 15:45 | PROVIDERS: ATTEND Internal Medicine | DX: Z29.8 Encounter for other specified prophylactic measures (principal) ==

== ENCOUNTER → 2023-05-15 | Outpatient (RCR) | payer MEDICARE | END | disposition home or self-care (01) | LOC: CR3 04-15 16:18 | PROVIDERS: ATTEND Internal Medicine | DX: Z29.8 Encounter for other specified prophylactic measures (principal) ==

== ENCOUNTER 2023-07-03 14:58 | Outpatient (RCR) | payer MEDICARE ==
[~2023-07-03 14:58] MED LIST changes: -POTA10CA44 PO; +POTA10CA84 PO; -ROSU20TA32 PO; +ROSU20TA73 PO
== END 2023-07-15 | disposition home or self-care (01) ==
LOC: CR3 14:58
PROVIDERS: ATTEND Internal Medicine
DX: Z29.8 Encounter for other specified prophylactic measures (principal)

== ENCOUNTER → 2023-07-16 | Outpatient (CLI) | payer MEDICARE ==
[~2023-07-16] MED LIST changes: +ACHD5005 PO; +PRD20T PO
--- NOTE | 2023-07-16 11:13 | Diagnostic Imaging Report ---
EXAM: CT IAC (SORTER OPERATOR AUDIT CANAL) WO INDICATION: Cochlear implant. COMPARISON: CT head without contrast 09/04/2022. FINDINGS: Bilateral mastoidectomies and cochlear implants which appear positioned appropriately. Hardware components appear grossly intact. Fluid throughout the remaining right mastoid air cells. External auditory canals and middle ears are clear. Normal alignment of the auditory ossicles. Normal morphology of the cochleas, vestibules, semicircular canals and vestibular aqueducts. The internal auditory canals are unremarkable. Visualized paranasal sinuses are clear. Normal alignment of the temporomandibular joints. IMPRESSION: 1. Bilateral mastoidectomies and cochlear implants which appear grossly intact and normally positioned. 2. Nonspecific fluid throughout the remaining right mastoid air cells. No soft tissue fluid collections. Dictated by: Dictated on workstation # [id number]
== END ==
LOC: RAD 09:31
PROVIDERS: ATTEND Specialist
DX: Z96.21 Cochlear implant status (principal); Z98.890 Other specified postprocedural states
CPT/HCPCS: 70480

== ENCOUNTER 2023-07-18 09:33 | Emergency (ER) | payer MEDICARE ==
[~2023-07-18] VITALS: Ht 167.7 cm; Wt 77.0 kg
[~2023-07-18 09:33] MED LIST changes: -ACHD5005 PO; -PRD20T PO
--- NOTE | 2023-07-18 09:56 | ED Hip Pain/Injury ---
General Chief Complaint: Hip/Pelvic Problems Stated Complaint: RIGHT HIP Nursing Triage Note: pt states she was in the shower last night, bent down to clean her foot and felt a collapse feeling in her right hip Source: patient Exam Limitations: no limitations History of Present Illness Date Seen by Provider: Jul 18, 2023 Time Seen by Provider: 09:42 Initial Comments Here with complaint of right hip pain. States that she was standing in the shower and felt like her right hip or pelvis collapsed. Has pain when she is standing she is able to stand and transfer and move her right hip without difficulty. 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 Denies fall or other injury. 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 She does exercise 5 days a week by walking a mile and a half on the track. Does have history of hypertension and arrhythmia managed by Dr Guerrero and Dr. Dean. Denies chest pain or breathing problems or other weakness currently. Reports taking her meds as directed. She did take an extra doxazosin today as her blood pressure was high and that is per instructions of Dr Guerrero. Timing/Duration: yesterday, changing over time Severity: mild, moderate Location: hip (R), pelvis Method of Injury: unknown Modifying Factors: Improves With Immobilization; Worse With Movement Associated Symptoms: No groin pain, No pain radiating to knees; trouble walking Allergies and Home Medications Allergies Coded Allergies: Penicillins (Verified Allergy, Unknown, 07/23/22) latex (Verified Allergy, Unknown, 07/23/22) morphine (Verified Allergy, Unknown, pt has had hydrocodone in past, 07/23/22) phenylbutazone (Verified Allergy, Unknown, 07/23/22) tramadol (Verified Allergy, Unknown, 07/23/22) Patient Home Medication List Home Medication List Reviewed: Yes ALPRAZolam (ALPRAZolam) 0.25 Mg Tablet, 0.25 MG PO HS PRN for INSOMNIA, (Reported) Entered as Reported by: SILVERIO BEARDEN on 01/10/22 0826 Aspirin (Aspirin) 81 Mg Tab.chew, 81 MG PO HS, (Reported) Entered as Reported by: LYN SANCHEZ on 10/24/19 1327 Carvedilol (Carvedilol) 25 Mg Tablet, 50 MG PO BID, (Reported) Entered as Reported by: LYN SANCHEZ on 10/24/191326 Cholecalciferol (Vitamin D3) (Vitamin D3) 25 Mcg Capsule, 25 MCG PO DAILY, (Reported) Entered as Reported by: SILVERIO BEARDEN on 01/10/22825 Citalopram Hydrobromide (Celexa) 10 Mg Tablet, 10 MG PO DAILY, (Reported) Entered as Reported by: SILVERIO BEARDEN on 01/10/22825 Doxazosin Mesylate (Doxazosin Mesylate) 2 Mg Tablet, 2 MG PO DAILY, (Reported) Entered as Reported by: HEBERT BO on 04/15/221006 Ferrous Sulfate (Feosol) 325 Mg Tablet, 325 MG PO DAILY, (Reported) Entered as Reported by: SILVERIO BEARDEN on 01/10/22825 Furosemide (Furosemide) 40 Mg Tablet, 40 MG PO DAILY, (Reported) Entered as Reported by: SILVERIO BEARDEN on 01/10/22825 Levothyroxine Sodium (Levothyroxine) 175 Mcg Capsule, 175 MCG PO DAILY, (Reported) Entered as Reported by: SILVERIO BEARDEN on 01/10/22825 Multivitamin (Multi-Vitamin Daily) 1 Each Tablet, 1 EACH PO DAILY, (Reported) Entered as Reported by: SILVERIO BEARDEN on 01/10/22825 Omeprazole (Omeprazole) 20 Mg Tablet.dr, 20 MG PO BID, (Reported) Entered as Reported by: SILVERIO BEARDEN on 01/10/22825 Potassium Chloride (Potassium Chloride) 10 Meq Tablet.er, 20 MEQ PO DAILY, (Reported) Entered as Reported by: LYN SANCHEZ on 10/24/191326 Potassium Chloride (Potassium Chloride) 10 Meq Capsule.er, 10 MEQ PO HS, (Reported) Entered as Reported by: SILVERIO BEARDEN on 01/10/22825 Raloxifene HCl (Raloxifene HCl) 60 Mg Tablet, 60 MG PO DAILY, (Reported) Entered as Reported by: LYN SANCHEZ on 10/24/191326 Rosuvastatin Calcium (Rosuvastatin Calcium) 20 Mg Tablet, 20 MG PO HS, (Reported) Entered as Reported by: HEBERT BO on 04/15/22 1007 Valsartan (Valsartan) 320 Mg Tablet, 320 MG PO DAILY, (Reported) Entered as Reported by: SILVERIO BEARDEN on 01/10/22825 [oxygen] , 2 L HS, (Reported) Entered as Reported by: SILVERIO BEARDEN on 01/10/22825 Review of Systems Constitutional: see HPI; No chills, No fever Respiratory: no symptoms reported Cardiovascular: no symptoms reported Musculoskeletal: joint pain, muscle pain Past Udqjfwh-Umrxlm-Yuueev Hx Patient Social History Tobacco Use?: No Substance use?: No Alcohol Use?: Yes Alcohol Frequency: Couple times a week Immunizations Up To Date Tetanus Booster (TDap): Unknown PED Vaccines UTD: No First/Initial COVID19 Vaccinat: 06/06 Second COVID19 Vaccination Hu: 06/06 Third COVID19 Vaccination Date: 06/06 Seasonal Allergies Seasonal Allergies: Yes Past Medical History Surgery/Hospitalization HX: RIGHT MASTECTOMY + LYMPH NODE REMOVAL 1995 Surgeries: Yes (LAP OOPHORECTOMY; BILATERAL TKR;R SHOULDER REPLACEMENT;BILAT COCHLEAR IMPLA) Breast, Ear Surgery, 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, Orthopedic Respiratory: Yes (O2 AT NIGHT, PULMONARY HTN) Pneumonia Currently Using CPAP: No Currently Using BIPAP: No Cardiac: Yes High Cholesterol, Hypertension Neurological: Yes Stroke 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 Disorders: Yes (HYSTERECTOMY AT AGE 30) Female 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 Disorders: 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 History: 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 Sexually Transmitted Disease: No HIV/AIDS: No Genitourinary: No Gastrointestinal: Yes Gastroesophageal Reflux Musculoskeletal: Yes (BILAT TKR; R SHOULDER REPLACEMENT) Arthritis, Chronic Back Pain Endocrine: Yes Hypothyroidsim HEENT: Yes (COMPLETELY BLIND; DEAF--BILAT COCHLEAR IMPLANTS) Cataract Loss of Vision: Bilateral Hearing Impairment: Deaf Cancer: Yes Breast, Melanoma Did You Recieve Any Treatments: Yes What Type of Treatment Did You: Surgical Intervention Psychosocial: Yes Anxiety, Depression Integumentary: No Blood Disorders: No Adverse Reaction/Blood Tranf: No Family Medical History Reviewed Nursing Family Hx Cancer G8 SISTER G8 SISTER Family history: Cardiovascular disease 19 FATHER 19 MOTHER Family history: Hypertension 19 FATHER 19 MOTHER G8 BROTHER G8 SISTER G8 SISTER G8 SISTER G8 SISTER Myocardial infarction 19 FATHER 19 MOTHER Physical Exam Vital Signs Vital Signs - First Documented 07/18/23 09:40 Temp 36.0 Pulse 59 Resp 18 B/P (MAP) 183/89 (120) Pulse Ox 94 Capillary Refill : Less Than 3 Seconds Height, Weight, BMI Height: 5'6.00" Weight: 148lbs. 8.0oz. 67.550396ja; 27.00 BMI Method:Estimated General Appearance: No Apparent Distress, WD/WN Cardiovascular: Regular Rate, Rhythm, No Murmur Respiratory: Lungs Clear, Normal Breath Sounds Extremity: Other (Range of motion right hip without significant pain. Patient is able to self range through flexion and extension as well as internal and external rotation.) Neurologic/Psychiatric: Alert, Oriented x3 Progress/Results/Core Measures Results/Orders My Orders Orders - LONNIE BRINK MD Pelvis With Right Hip 2-3views (07/18/23 09:49) Vital Signs/I&O 07/18/23 09:40 Temp 36.0 Pulse 59 Resp 18 B/P (MAP) 183/89 (120) Pulse Ox 94 Blood Pressure Mean: 120 Progress Progress Note : Progress Note Seen and evaluated. X-ray right hip and pelvis ordered. Monitor patient. Differential diagnosis includes degenerative joint disease, arthritis, fracture 043: Pelvis and hip x-ray reviewed by me and I do not see obvious fracture but there is question of degeneration on my interpretation. See radiology report for more details. She is actually doing okay currently. I will prescribe short course of pain medicine as well as steroids and she will follow-up with Dr. Dean for possible referral to orthopedics. She is comfortable with this plan. Discharged home with return precautions. Patient verbalized understanding instructions and agreement with plan. Diagnostic Imaging Diagonstic Imaging: Xray Plain Films/CT/US/NM/MRI: pelvis, hip Comments [facility], [place] NAME: THALIA ELI Ketan [facility] REC#: [id number] PT STATUS: REG ER : 1945 PHYSICIAN: LONNIE BRINK MD ADMIT DATE: 07/18/23/ER Signed Date of Exam:07/18/23 PELVIS WITH RIGHT HIP 2-3VIEWS EXAMINATION: Pelvis and right hip radiograph EXAM DATE: 07/18/2023 10:03 AM COMPARISON: 10/10/2019 HISTORY: Pelvic and hip pain. TECHNIQUE: 3 views FINDINGS: There is no acute fracture, dislocation, or destructive osseous process. The joint spaces are normal. The soft tissues are normal. IMPRESSION: 1. No acute osseous abnormality. Dictated by: Dictated on workstation # [id number] Dict: 07/18/23 1010 Trans: 07/18/23 1014 [facility] [id number] Interpreted by: NELLIE PEREZ DO Electronically signed by: NELLIE PEREZ DO 07/18/23 1014 Departure Impression Primary Impression: Right hip pain Disposition: 01 HOME, SELF-CARE Condition: Stable Departure-Patient Inst. Decision time for Depature: 10:44 Referrals: ISAIAH DEAN DO (PCP/Family) Primary Care Physician Patient Instructions: Hip Pain ED Add. Discharge Instructions: All discharge instructions reviewed with patient and/or family. Voiced understanding. Follow-up with Dr. Dean for recheck and further evaluation and to discuss referral to orthopedics for further evaluation of the hip. Take medications as directed. Return for worse pain, weakness, numbness, swelling or other concerns as needed. Scripts Prednisone (Prednisone) 20 Mg Tab 40 MG PO DAILY, #10 TAB 0 Refills Prov: LONNIE BRINK MD 07/18/23 Hydrocodone/Acetaminophen (Hydrocodone-Acetamin 5-325 mg) 5 Mg-325 Mg Tablet 1 TAB PO Q6H PRN for PAIN-MODERATE (5-7) for 7 Days, #12 TAB 0 Refills Prov: LONNIE BRINK MD 07/18/23 Copy Copies To 1: ISAIAH DEAN TIMOTHY D MD Jul 18, 2023 09:56
--- NOTE | 2023-07-18 10:12 | Diagnostic Imaging Report ---
EXAMINATION: Pelvis and right hip radiograph EXAM DATE: 07/18/2023 10:03 AM COMPARISON: 10/10/2019 HISTORY: Pelvic and hip pain. TECHNIQUE: 3 views FINDINGS: There is no acute fracture, dislocation, or destructive osseous process. The joint spaces are normal. The soft tissues are normal. IMPRESSION: 1. No acute osseous abnormality. Dictated by: Dictated on workstation # [id number]
[2023-07-18] MEDS ORDERED: ACHD5005 PO (10:45)
[2023-07-18] MEDS ORDERED: PRD20T PO (10:45)
[2023-07-18 10:57] VITALS: BP 128/80
== END 2023-07-18 11:00 | disposition home or self-care (01) ==
LOC: EDUNIT# 09:33 → ER 09:36
DX: M25.551 Pain in right hip (principal); Z91.040 Latex allergy status

== ENCOUNTER 2023-08-26 14:01 | Outpatient (RCR) | payer MEDICARE ==
[~2023-08-26 14:01] MED LIST changes: +ACHD5005 PO; +PRD20T PO
== END 2023-10-15 | disposition home or self-care (01) ==
LOC: CR3 14:01
PROVIDERS: ATTEND Internal Medicine
DX: Z29.89 Encounter for other specified prophylactic measures (principal)

== ENCOUNTER → 2023-09-17 | Outpatient (CLI) | payer MEDICARE | LOC: CARD 08:30 | PROVIDERS: ATTEND Internal Medicine Cardiovascular Disease | DX: I34.0 Nonrheumatic mitral (valve) insufficiency (principal); I51.7 Cardiomegaly; I27.22 Pulmonary hypertension due to left heart disease | CPT/HCPCS: 93306 ==

== ENCOUNTER 2023-10-14 13:27 | Outpatient (RCR) | payer MEDICARE | END 2023-10-15 | PROVIDERS: ATTEND Internal Medicine | DX: M25.551 Pain in right hip (principal); I10 Essential (primary) hypertension ==